=== PATIENT | female | born 1985 | race Caucasian/White ===

== ENCOUNTER 2024-03-20 08:40 | Inpatient (IN) | payer OTHER, SELFPAY ==
[2024-03-20] VITALS (57 sets, daily range): BP systolic 113–215; BP diastolic 76–160; BMI 19.3; BMI 18.5
[2024-03-20 00:55] LABS: % Basophils 0.2 % (0-2); % Eosinophils 0.2 % (0-6); % Immature Granulocytes 0.4 % (0-0.5); % Lymphocytes 6.7 % (20.5-51.1); % Monocytes 2.8 % (1.7-9.3); % Neutrophils 89.7 % (42.2-75.2); Absolute Immature Granulocytes 0.1 10^3/uL (0-0.05); Absolute Lymphocytes 1.3 10^3/uL (1.2-3.4); Absolute Monocytes 0.5 10^3/uL (0.1-0.6); Hematocrit 42.9 % (37.0-47.0); Mean Corp Hgb Conc. 32.6 g/dL (33.0-37.0); Mean Corpuscular Hgb 26.4 pg (27.0-31.0); Mean Corpuscular Volume 80.8 fL (81.0-99.0); Mean Platelet Volume 8.8 fL (7.4-10.4); Nucleated Red Blood Cells % 0 %; Platelet Count 485 10^3/uL (130-400); Red Blood Cell Count 5.31 10^6/uL (4.20-5.40); White Blood Cell Count 18.9 10^3/uL (4.8-10.8)
[2024-03-20] MEDS: NSS 1000 IV (01:42)
[2024-03-20] MEDS: ZOFRAN 4 MG IV ×2 (01:43→07:50)
--- NOTE | 2024-03-20 01:46 | ED.GENMED ---
History of Present Illness
General
Chief Complaint: Withdrawal Symptoms
Source: patient and records (Records from [facility])
Exam Limitations: clinical condition (Patient is moderately lethargic, poorly cooperative, sporadically briefly communicative.) and altered mental status
Time Seen by Provider: 03/20/24 01:31
Nursing documentation reviewed up to this point in time: agreed with
History of Present Illness
History of Present Illness:
This is a 39-year-old woman who was brought to the ED from [facility]. She has history of IV fentanyl and methamphetamine abuse. Reported last use earlier today. Admitted to the local intermediate this evening and was started on
withdrawal protocol receiving 2 L of IV fluids, was given Tylenol with codeine and clonidine as well as a dose of Ativan, IM Benadryl. Patient sent to the ED due to persistent hypertension, recurrent vomiting. She was given lisinopril 20 mg at the
intermediate.
Patient reports being she suspects perhaps 4 months but thus far no care.
Patient is moderately lethargic, sporadically briefly communicative, she does nod yes and no appropriately but otherwise poorly communicative.
Patient notes she has been treated with Suboxone in the past. Denies recent Suboxone treatment. Denies methadone treatment.
Phy Exam
Physical Exam
Physical Exam:
GENERAL: 39-year-old woman appears somewhat older than stated age. Lying on her left side on stretcher. Has recently vomited moderate amount of clear to bilious liquid. She is moderately sedate, nods yes and no appropriately otherwise poorly
cooperative, nonverbal.
EYE: pupils minimally dilated, equal and reactive. anicteric
NECK: Supple, nontender, no meningismus, no significant adenopathy.
ENT: posterior pharynx is clear, oral mucosa is moist. Mild rhinorrhea.
CARDIAC: Regular rate and rhythm. no murmur.
LUNGS: Clear breath sounds bilaterally, no acute respiratory distress, no wheezes/rales/rhonchi
ABDOMEN: Soft, nondistended, mild generalized tenderness to the lower abdomen, I question a palpable fundus just above symphysis pubis, no r/g, no cvat. normoactive BS.
NEUROLOGICAL: Moderately sedate, intermittently briefly communicative, nods yes and no appropriately, moving all extremities independently, no focal neuro deficits.
SKIN: Warm and minimally diaphoretic, normal color, skin intact. No rash.
MUSCULOSKELETAL: No C/C/E. peripheral pulses are full and equal b/l. No palpable tenderness.
PSYCH: Poorly cooperative.
Scores
COW Clinical Opiate Withdrawal Scale
Resting Pulse Rate: 80 or below
Sweating-over past 30min not from room temp or activity: Flushed or observable moistness on face
Restlessness-observation during assessment: Able to sit still
Pupil Size: Pupils possibly larger than normal for room light
Bone or Joint Aches: Mild diffuse discomfort
Runny Nose or Tearing-not accounted for by cold/allergies: Nasal stuffiness or unusually moist eyes
GI Upset-over last 30min: Vomiting or diarrhea
Tremor-observation of outstretched hands: No tremor
Yawning-observation during assessment: No yawning
Anxiety or Irritability: None
Gooseflesh Skin: Skin is smooth
Score: 8
Withdrawal Severity: Mild Withdrawal, consider starting Suboxone
Course
Orders/Labs/Results
Orders:
Orders
03/20/24 00:44
Test Result ONCE
03/20/24 00:46
Complete Blood Count/With Diff Urgent
03/20/24 01:30
Ondansetron Injectable [Zofran] 4 mg .ROUTE .STK-MED ONE
03/20/24 01:32
Comprehensive Metabolic Panel Urgent
HCG, Serum Qualitative Screen Urgent
Urinalysis Reflex To Culture Urgent
Urine Drug Abuse Screen Urgent
0.9% Sodium Chloride 1000 ml [Nss] 1,000 ml IV BOLUS
03/20/24 01:43
Ondansetron Injectable [Zofran] 4 mg IV NOW STA
03/20/24 01:53
Clonidine [Catapres] 0.2 mg PO NOW STA
03/20/24 02:36
KCl 40 Meq/0.9%Sodchl 1000 ml [NSS with KCL 40 MEQ] 40 meq in 1,000 ml IV 250 mls/hr
03/20/24 02:37
Buprenorphine [Subutex] 8 mg SL NOW ONE
03/20/24 03:11
CT Head W/o Iv Contrast Urgent
Comment:
Reason For Exam: lethargy, change in MS
Abnormal Lab Results
03/20/24 03/20/24
00:46 01:32
WBC 18.9 H 10^3/uL
(4.8-10.8)
MCV 80.8 L fL
(81.0-99.0)
MCH 26.4 L pg
(27.0-31.0)
MCHC 32.6 L g/dL
(33.0-37.0)
Plt Count 485 H 10^3/uL
(130-400)
Abs Immat Gran (auto) 0.1 H 10^3/uL
(0-0.05)
Absolute Neuts (auto) 17.0 H 10^3/uL
(1.4-6.5)
Neutrophils % 89.7 H %
(42.2-75.2)
Lymphocytes % 6.7 L %
(20.5-51.1)
Potassium 2.8 L mmol/L
(3.5-5.1)
BUN 5 L mg/dl
(7-17)
Glucose 129 H mg/dl
(70-99)
03/20/24 00:46
03/20/24 01:32
Vital Signs
Initial and Last Documented VS:
Initial Vital Signs
Temp Pulse Resp BP Pulse Ox
98.3 F 104 18 180/140 97
12/23/24 00:01 03/20/24 00:01 03/20/24 00:01 03/20/24 00:01 03/20/24 00:01
Last Documented Vital Signs
Temp Pulse Resp BP Pulse Ox
97.7 F 99 32 215/123 97
03/20/24 02:15 03/20/24 01:00 03/20/24 01:00 03/20/24 00:28 03/20/24 00:01
MDM/Problems Addressed
Differential Diagnosis Includes:
Concern for significant opiate as well as methamphetamine withdrawal.
COWS score currently of 8
Labs thus far show significantly elevated white blood cell count of 18. Chemistries, hCG are pending.
As patient is moderately sedate, will check CT of the head. If hCG is positive we will check pelvic ultrasound.
Will continue IV fluids. Will give IV dose of Zofran for nausea.
Will consider Subutex, clonidine, Ativan
*Radiology
Radiology exam reviewed: radiology read reviewed (CT of the head is unremarkable)
*Pulse Oximetry
Patient hypoxic: no
*Psychology Intern Interpretation
Rate: tachycardiac
Interpretation: abnormal
Rhythm: sinus
*Critical Care Note
Total Time (30-74mins, 75-104mins- exclusive of procedures): Not Applicable
Update Note
Update Note:
04:20
Patient remains moderately sedate, appears to have mild to moderate opioid withdrawal, remains mildly tachycardic, moderately hypertensive.
She remains poorly cooperative however, initially agreeable to Subutex but now will not cooperate with oral administration.
CT of the head is unremarkable.
Chemistries reveal moderate hypokalemia. IV potassium repletion has been initiated. hCG is negative.
She continues with intermittent dry heaves but no further vomiting.
Due to ongoing GI symptoms, ongoing withdrawal symptoms, lethargy, unstable vital signs, she is at risk for worsening/severe withdrawal symptoms thus will require acute hospitalization.
ED Attending Note
-
Portions of this chart may have been created with voice recognition software.� Occasional wrong word or��sound alike� substitutions may have occurred due to the inherent limitations of voice recognition software.
Discharge Plan
Departure
Patient Disposition: Admit
Date of Disposition: 03/20/24
Time of Disposition: 04:24
Admit to doctor: genaro
Presentation/result/management discussed w/ accepting MD/DO: Hospitalist
Discharge Problem:
Polysubstance dependence including opioid drug with daily use, Opioid withdrawal delirium, Acute hypokalemia
Referrals:
[facility] [Family Provider] -
Interventions
Interventions:
*Risk Screen - Suicide Last Done: 03/20/24 00:01
*General Assessment Last Done: 03/20/24 00:01
*Neglect/Abuse Screening Last Done: 03/20/24 00:01
*ED COVID-19 Vaccine History Last Done: 03/20/24 00:13
ED- Neurological Assessment Last Done: 03/20/24 01:19
ED-Psychological Assessment Last Done: 03/20/24 01:19
Discharge Date and Time
Print Language: GERMAN
[2024-03-20 02:10] LABS: HCG, Serum Qualitative Screen Negative
[2024-03-20 02:11] LABS: ALT (SGPT) 23 U/L (0-35); AST (SGOT) 35 U/L (14-36); Albumin 4.4 g/dl (3.5-5.0); Alkaline Phosphatase 107 U/L (38-126); Blood Urea Nitrogen 5 mg/dl (7-17); Calcium 9.2 mg/dl (8.4-10.2); Carbon Dioxide 26 mmol/L (22-30); Chloride 100 mmol/L (98-107); Estimated Creatinine Clearance 106 ml/min; Glucose 129 mg/dl (70-99); Potassium 2.8 mmol/L (3.5-5.1); Sodium 143 mmol/L (135-145); Total Bilirubin 0.7 mg/dl (0.2-1.3); Total Protein 8.1 g/dl (6.3-8.2); eGFR > 60.00
[2024-03-20] MEDS: NSS with KCL 40 MEQ 1000 IV (02:59)
[2024-03-20] MEDS: CATAPRES 0.2 MG PO ×2 (03:03→05:36)
--- NOTE | 2024-03-20 04:34 | PTCARENOTE ---
Pt refused to take medications. Pt uncooperative. Does not answer questions when spoken to. HR: 120s. Sinus Tachy on monitor.
[2024-03-20 04:59] LABS: Urine Albumin Negative (Neg - Trace); Urine Bilirubin Negative (Negative); Urine Character Clear (Clear); Urine Color Yellow; Urine Glucose Negative (Negative); Urine Ketone 3+ (Negative); Urine Leukocyte Trace (Negative); Urine Nitrite Negative (Negative); Urine Occult Blood Negative (Negative); Urine Urobilinogen Negative (Neg - 1+)
--- NOTE | 2024-03-20 05:06 | PTCARENOTE ---
Pt incontinent several times. Does not answer this Rn when asked if she knows when she has to void. Straight cath performed to obtain urine sample. Pt uncooperative. Guards at the bedside. HR:110-120s. POX 98% on RA. IVF infusing.
--- NOTE | 2024-03-20 05:30 | HPS.HSE ---
Family Physician
-
Family Physician: Facility [facility]
Chief Complaint
-
Withdrawal symptoms
History of Present Illness
History obtained per chart as patient was noncooperative and is a poor historian. This is a 39-year-old who was brought in from [facility] with history of IV opioid and methamphetamine abuse.
She was admitted to the local half-way this evening and started on withdrawal protocol with IV fluids and Tylenol with codeine as well as clonidine Ativan and Benadryl. Patient continued to have persistent hypertension and tachycardia and recurrent
vomiting so was brought to the emergency department. She was given lisinopril 20 mg in half-way. Reports history of Suboxone treatment in the past but not recently. Denies being on methadone.
Patient reports she suspect she is without any care.
Medical History
Past Medical History
Past Medical History: Reports Psychiatric (Substance abuse)
Past Surgical History: Reports None
Social History
Alcohol: None
Drug: Narcotics and IVDA
Family History
Family History: Not pertinent
Allergies / Home Medications
Allergies reflects when Allergies were last updated in [employer].
Home Medications with original date entered in [employer]
Allergy/Medication List:
Allergies
Allergy/AdvReac Type Severity Reaction Status Date / Time
No Known Allergies Allergy Verified 03/20/24 00:10
NO MEDICATIONS
Review of Systems
-
Unable to obtain full review of systems at this time due to: Acuity
Physical Exam
Vital Signs
Vital Signs
Temp Pulse Resp BP Pulse Ox
98.8 F 108 30 206/115 97
03/20/24 04:57 03/20/24 04:30 03/20/24 04:30 03/20/24 04:00 03/20/24 00:01
Physical Exam
General: No Apparent Distress
HEENT: NormoCephalic, Anicteric, Moist mucous membranes and Atraumatic
Respiratory: Clear
Cardiac: S1/S2, Regular Rhythm and Tachycardia
Breast: Deferred by me
GI: Soft, Non Tender, Non Distended and Normal Bowel Sounds
Rectal: Deferred by Provider
Genito-urinary: Deferred by me
Musculoskeletal: No Cyanosis and No Edema
Neuro: Awake
Hematologic/Lymphatic: No Lymphadenopathy
Psych: Calm
Laboratory Results
-
03/20/24 00:46
03/20/24 01:32
Laboratory Results
Total Bilirubin 0.7 mg/dl (0.2-1.3) 03/20/24 01:32
AST 35 U/L (14-36) 03/20/24 01:32
ALT 23 U/L (0-35) 03/20/24 01:32
Alkaline Phosphatase 107 U/L (38-126) 03/20/24 01:32
Data Reviewed
-
CT Scan: Report Reviewed by me
Lab Data: Labs Reviewed by me
Impression/Plan
-
IMPRESSION:
38 y.o with h/o fentanyl use presenting with opioid withdrawal and failure of management at outside facillity. Last use on wednesday.
PLAN:
Opioid withdrawal
- admit to imu
- COWS protocol with subuxone
- lorazepam prn
- clonidine 0.1 mg q 6
- adjunctive treatments with acetaminophen, antiemetics and loperamide per protocol
- patient uncooperative, no warm hand, consult psych in am
DVT PPX - SCDs
Code status - full code
[2024-03-20] MEDS: SUBUTEX 8 MG SL ×3 (05:33→12:16)
--- NOTE | 2024-03-20 05:44 | PTCARENOTE ---
Pt continues to be uncooperative. nonverbal. SBP 200, aware. Subutex and catapres given.
[2024-03-20 05:54] LABS: Amphetamines Positive (Negative); Barbiturates Negative (Negative); Benzodiazepines Positive (Negative); Buprenorphine Negative (Negative); Cocaine Positive (Negative); Marijuana Negative (Negative); Methadone Negative (Negative); Methamphetamines Positive (Negative); Opiates Positive (Negative); Phencyclidine Negative (Negative); Tricyclic Antidepressants Negative (Negative)
[2024-03-20 06:14] LABS: Fentanyl, Urine Positive (Negative)
[2024-03-20 06:53] LABS: Urine Squamous Cell >30 /LPF (Few); Urine Urothelial Cell 16-20 /LPF (FEW)
[2024-03-20 06:54] LABS: Urine Bacteria Moderate (Negative); Urine Red Blood Cell 0-2 /HPF (0-2)
[2024-03-20 06:55] LABS: Urine Mucus Few
--- NOTE | 2024-03-20 07:38 | W.PN.HOSP.TC ---
Today's Communication/Plan
-
Nicardipine drip
ICU transfer
Neurology consult
Senior Benefits Analyst consult
Assessment / Plan
Assessment / Plan
Gen-somnolent
HEENT-NC, AT, anicteric, clear oral mm
Neck-supple
CV-reg, no M, +S1/S2
Lungs-clear B/L
Abd-soft, NT, ND
Ext-no edema
Musculoskeletal-no cyanosis, clubbing
Skin-warm and dry
Acute TME -differential diagnosis includes seizures versus hypertensive encephalopathy versus other. CT head unremarkable in the emergency room. Patient remains unarousable.
Consult neurology, rule out underlying seizures.
Transfer to ICU. Senior Benefits Analyst consult.
Opioid withdrawal syndrome -continue protocol.
Hypertensive emergency -start nicardipine drip. Continue clonidine per opiate withdrawal protocol.
Hypokalemia -potassium 2.8 this morning. Recheck level now, check magnesium.
Substance abuse -consult psychiatry once stable.
Full code - assumed.
Anticipated Discharge: > 48 hours
Subjective/Interval History
-
Date of Service: March 20, 2024
Patient seen/examined. Sedated, hard to arouse, not following commands.
Objective Data
-
Labs:
Laboratory Results
03/20/24 03/20/24 03/20/24
00:46 01:32 11:00
WBC 18.9 H
Hgb 14.0
Hct 42.9
Plt Count 485 H
Sodium Cancelled 143 Pending
Potassium Cancelled 2.8 L Pending
Chloride Cancelled 100 Pending
Carbon Dioxide Cancelled 26 Pending
BUN Cancelled 5 L Pending
Creatinine Cancelled 0.6 Pending
Glucose Cancelled 129 H Pending
Calcium Cancelled 9.2 Pending
Total Bilirubin Cancelled 0.7
AST Cancelled 35
ALT Cancelled 23
Alkaline Phosphatase Cancelled 107
Vital Signs:
Vital Signs
Temp Pulse Resp BP Pulse Ox
98 F 124 24 186/124 99
03/20/24 06:34 03/20/24 06:30 03/20/24 06:30 03/20/24 06:30 03/20/24 06:44
Review of Systems
-
Unable to obtain full review of systems at this time due to: Acuity
--- NOTE | 2024-03-20 07:41 | CON.INTV ---
Consultation
Consultation Request
Date/Time Consultation Requested: 03/20/2024-7 AM
Date/Time Consultation Performed: 03/20/2024-7:30 AM
Requesting Provider: Hospitalist
Performing Provider: Dr. Mendoza
Reason for Consultation: Opiate withdrawal
Medical History
-
Chief Complaint: Opiate withdrawal
History of Present Illness:
39-year-old incarcerated female with history of IV opiates and methamphetamine abuse recently admitted to local residential and started on withdrawal protocol with IV fluids, Tylenol with codeine, Ativan, Benadryl and clonidine and continued to have
significant tachycardia, agitation, and hypertension necessitating admission and transfer to intensive care unit-asian art curator consulted for opiate withdrawal/critical care management 03/20/2024. Patient is sedated, lethargic, intermittently agitated
and review of systems was unobtainable.
Past Medical History
Past Medical History: None (Substance abuse-IV opiates and methamphetamines)
Social History
Tobacco: Non-smoker
Alcohol: None
Drug: IVDA (Narcotics) and Other (Methamphetamines)
Personal: Single
Living: [facility]
Occupational Exposures: No known asbestos exposure
Environmental Exposures: No known tuberculosis exposure
Family History
Family History: Unable to Obtain
Allergies / Home Medications
Allergies
Allergy/AdvReac Type Severity Reaction Status Date / Time
No Known Allergies Allergy Verified 03/20/24 00:10
Review of Systems
-
Unable to Obtain full review of systems at this time due to: Other (Per HPI)
Vitals / Labs / Diagnostic Testing
Vital Signs
Temp Pulse Resp BP Pulse Ox
98 F 124 24 186/124 99
03/20/24 06:34 03/20/24 06:30 03/20/24 06:30 03/20/24 06:30 03/20/24 06:44
Lab Data
03/20/24 00:46
Diagnostic Testing:
Physical Exam
-
Exam:
Well-nourished and well-developed in no apparent distress
HEENT-atraumatic, normocephalic
Neck-supple, no JVD, no bruit
Heart-regular rate tachycardic, no murmurs
Chest clear without wheezes or crackles
Back-no tenderness
Abdomen-soft, nontender, nondistended, no hepatosplenomegaly
Extremities-no cyanosis, clubbing, edema and good peripheral pulses
Integument-intact, no rashes, lesions or ecchymosis
Neurologically agitated, moving extremities
Assessment
-
39-year-old incarcerated female with history of IV opiates and methamphetamine abuse recently admitted to local residential and started on withdrawal protocol with IV fluids, Tylenol with codeine, Ativan, Benadryl and clonidine and continued to have
significant tachycardia, agitation, and hypertension necessitating admission and transfer to intensive care unit-asian art curator consulted for opiate withdrawal/critical care management 03/20/2024.
Opiate withdrawal
UDS-positive opiates, fentanyl, amphetamines, methamphetamines, benzodiazepines and cocaine
Hypertensive urgency
Hypokalemia
Suspected seizure activity-1 hour EEG without seizure activity
Leukocytosis
Hyperglycemia
Conditions present prior to admission:
Polysubstance abuse
Plan
Patient will be admitted to medical intensive care
Supplemental oxygen
Intubate and mechanically ventilate if need to protect airway
Aspiration precautions
Check ABG if needed
Etiology of drug overdose likely multiple including benzodiazepines, opiates, amphetamines, and cocaine
Monitor for arrhythmias-monitor QTC, QRS, etc.
CT head summarized below
Neurology evaluation ongoing-correspondence reviewed
EEG-negative for seizure activity
For potential opiate overdose
Monitor for respiratory depression, contricted pupils,
Dextromethorphan - serotonin txicity
Fentanyl - amnestic, chest wall rigidity
Hydrocodone - often combined with acetaminophen
Loperamide - QRS and QT prolongation, wide complex tachy
Meperidine - seizure, serotonin toxicity
Methadone - very long acting, QT prolongation, Torsades
Oxycodone - often combined with acetaminophen, QT prolongation
Tramadol - seizure, serotonin toxicity
Naloxone- consider drip
Often Xylazine coadministered with Fentanyl
causes coma, apnea, bradycardia and hypotention, skin ulcerations
withdrawal irratibility, craving, anxiety, dysphoria, tachy, aches, htn
check levels
More recent laced with Medetomidine -Symptoms include intractable vomiting, excessive diaphoresis, hypertensive emergency, waxing and waning hypoactive encephalopathy, tremors and tachycardia- treated with methadone/hydromorphone and
alpha-2 agonist withdrawal with clonidine
For potential benzodiazepine overdose
Monitor for sedation, airway protection, intubate if necessary, supportive care
Consider propylene glycol toxicity if parenteral diazepam or lorazepam was used
Flumazenil could be considered
Intravenous fluids
Nicardipine for hypertensive emergency
Labetalol as needed
Clonidine added
Psychiatric evaluation
DVT prophylaxis-Lovenox
Aspiration precautions
Early nutrition
Early mobilization
Critical care statement: A total of 55 minutes of critical care time was provided for this patient today. This includes management of unstable vital signs, evaluation of the patient at bedside, reviewing the patient's pertinent medical records
including radiographs, microbiology, laboratory evaluations, and discussion with primary team and critical care nursing.
Diagnostic data:
Chest x-ray 03/20/2024-no acute cardiopulmonary process, NG tube tip in stomach
CT head 03/20/2024-no acute intracranial abnormalities
Data Reviewed
-
EKG: Report reviewed by me
Radiology: Report reviewed by me
CT Scan: Report reviewed by me
Medical Tests (Nuc Med, Echo etc): Report reviewed by me
Labs: Labs reviewed by me
Old Records: Reviewed
Critical Care Time (in minutes): 55
[2024-03-20] MEDS: D5/0.45%NACL 1000 IV ×2 (07:51→19:27)
--- NOTE | 2024-03-20 07:56 | PTCARENOTE ---
pt received in sinus tach HR 126. BP 187/144 RUE. pt unresponsive. Twitching noted to b/l eye lids and, cheek and b/l hands tremulous. Hospitalist bedside concerned for possible seizure activity, consult neuro. N/O Cardene start at 5mg titrate for
SBP. see may. Neurology at bedside, N/O EEG. VAT RN at bedside attempt to obtain additional access. IVF continues. Pt vomited greenish yellow, zofran administered. B/L hands appear mottled. +radial Pulses b/l. Bladder scan showed no urine in the
bladder. Pt did briefly respond, moaning c/o pain, able to answer 'everything' when asked what is hurting but continues to keep eyes closed.
--- NOTE | 2024-03-20 08:00 | CON.NEURO ---
Neuro Assessment/Plan
Assessment
Acute change of mental status
Most likely toxic-metabolic, DDX includes somatization D/O, seizures due to cocaine exposure
Plan
check urgent > 1 hour EEG
consider new head imaging if no improvement
Continue therapies for control of withdrawal from cocaine, amphetamines, fentanyl
Based on EEG results, can decide if antiseizure medication is necessary
Goal of gradual normotension
Will follow pending results.
Consultation
Order
Date of Consultation: 03/20/24
Requesting Provider: Hospitalist
Reason for Consult: Unresponsiveness
Subjective/Objective
Subjective Data
Date of Service: March 20, 2024
Unknown handed
Patient presented to this hospital's emergency department, withdrawing from known exposure to methamphetamine, and IV fentanyl. The patient was subsequently also found to have used cocaine. At the time of presentation, the patient was described as
being as well as moderately lethargic.
Due to persistent lethargy, this consultation was placed. The patient herself is unable to provide her own medical history. It is unclear as to when the patient became lethargic.
No known modifying factors, no known associated symptoms with the exception of the patient having developed emesis this morning while in the intensive care unit.
Objective Data
Vital Signs
Temp Pulse Resp BP Pulse Ox
36.6 C 124 24 186/124 99
03/20/24 06:34 03/20/24 06:30 03/20/24 06:30 03/20/24 06:30 03/20/24 06:44
Lab Results
03/20/24 00:46
Sodium 143 mmol/L (135-145) 03/20/24 01:32
Potassium 2.8 mmol/L (3.5-5.1) L 03/20/24 01:32
BUN 5 mg/dl (7-17) L 03/20/24 01:32
Glucose 129 mg/dl (70-99) H 03/20/24 01:32
Calcium 9.2 mg/dl (8.4-10.2) 03/20/24 01:32
Ur Buprenorphine Negative (Negative) 03/20/24 04:53
Patient Allergies
No Known Allergies Allergy (Verified 03/20/24 00:10)
Review of Systems
-
Unable to obtain full review of systems at this time due to: Lethargy
History Source: Patient
All other systems: Reviewed and negative
Physical Exam
-
General: No Apparent Distress and Appears Stated Age
Eyes: Round OU, [place] Conjunctivae and No Ptosis; Negative Able to visualize OU
HEENT: Anicteric and Moist Mucous Membranes
Neck: Full Range of Motion
Respiratory: No Dyspnea
Cardiac: No JVD
GI: Non-distended
Skin: Other (Numerous tattoos)
Extremities: No Clubbing, No Cyanosis and No Edema
Psych: Unable to Assess
Extended Neurological Exam
Mood & Affect: Unable to Assess
Attention Span & Concentration: Awake, Unable to Perform 2 Step Request and Other (Does perform some single step requests); Negative Alert or Interactive
Memory: Unable to Assess
Tremor: Hand Tremor Absent and Head Tremor Absent
Involuntary Movement: None
Speech: Mute
Cranial Nerve II: Left Eye: Pupillary Reactivity Unremarkable, Pupillary Size Unremarkable and Unable to Assess Visual Swenson
Cranial Nerve II: Right Eye: Pupillary Reactivity Unremarkable, Pupillary Size Unremarkable and Unable to Assess Visual Swenson
Cranial Nerves III, IV, : Extraocular Movement: Unable to Assess
Cranial Nerve V: Facial Sensation: Unable to Assess
Cranial Nerve VII: Facial Symmetry: Normal Facial Symmetry
Cranial Nerve VIII: Hearing: Unremarkable Hearing to Normal Conversational Volume
Cranial Nerves IX, X: Palate Movement: Unable to Assess
Cranial Nerve XI: Shoulder Shrug: Unable to Assess
Cranial Nerve XII: Tongue Protusion: Unable to Assess
Muscle Strength, Overall: Spontaneously Moves (All extremities, minimally, distally, rarely)
Muscle Bulk & Tone: Bulk Unremarkable and Tone Unremarkable
Pronator Drift: Unable to Assess
Deep Tendon Reflexes: Absent Throughout
Cold Sensation: Unable to Assess
Vibration Sensation: Unable to Assess
Touch Sensation: Withdrawal to Pain
Coordination: Unable to Assess
Babinski Sign: Absent Bilaterally
Gait & Station: Unable to Assess
Data Reviewed
-
CT Head: Report Reviewed
Medications
-
Active Medications
Generic Name Dose Route Start Last Admin
Trade Name Freq PRN Reason Stop Dose Admin
Acetaminophen 1,000 mg 03/20/24 08:00
Acetaminophen 500 Mg Tablet PO 04/17/24 07:59
Q8 DEONDRE
Buprenorphine 8 mg 03/20/24 06:26
Buprenorphine 8 Mg Sl Tablet SL
PRN PRN
COWS greater than/equal to 8
Protocol
Buprenorphine 0 mg 03/21/24 08:00
Buprenorphine 8 Mg Sl Tablet SL 03/21/24 08:01
ONCE ONE
Buprenorphine 0 mg 03/22/24 08:00
Buprenorphine 8 Mg Sl Tablet SL 04/05/24 07:59
DAILY DEONDRE
Buprenorphine 4 mg 03/21/24 08:00
Buprenorphine 2 Mg Sl Tablet SL 03/22/24 08:00
ONCE PRN PRN
opioid cravings/withdrawal sx
Clonidine HCl 0.1 mg 03/20/24 06:26 03/20/24 07:52
Clonidine 0.1 Mg Tablet PO 04/17/24 06:25 Not Given
Q6 DEONDRE
Dextrose/Sodium Chloride 1,000 mls @ 75 mls/hr 03/20/24 06:26 03/20/24 07:51
D5/0.45%Nacl IV 1,000 mls
.[id number] DEONDRE Administration
Nicardipine/Sodium Chloride 40 mg in 200 mls @ 0 mls/hr 03/20/24 07:45
Cardene IV
PER PROTOCOL DEONDRE
Protocol
Per Protocol
Ketorolac Tromethamine 10 mg 03/20/24 06:26
Ketorolac 15 Mg/Ml Injection IV 03/25/24 06:25
Q6HPRN PRN
moderate pain
Loperamide HCl 2 mg 03/20/24 06:26
Loperamide 2 Mg Capsule PO 04/17/24 06:25
Q4HPRN PRN
loose stools
Lorazepam 1 mg 03/20/24 06:26
Lorazepam 2 Mg/Ml Vial IV 04/17/24 06:25
Q6HPRN PRN
agitation
Ondansetron HCl 4 mg 03/20/24 06:26 03/20/24 07:50
Ondansetron 4 Mg/2 Ml Vial IV 04/17/24 06:25 4 mg
Q6HPRN PRN Administration
nausea
Sodium Chloride 0 flush 03/20/24 05:00
Sodium Chloride 0.9% (Flush) Syringe IV 04/17/24 04:59
PER PROTOCOL DEONDRE
Sodium Chloride 0.5 ml 03/20/24 06:45
Nss (Pf) 10 Ml Vial For Ativan 1 Mg Dose IV 04/17/24 06:44
Q6HPRN PRN
IV LORAZEPAM DILUTION
Tizanidine HCl 2 mg 03/20/24 06:26
Tizanidine 2 Mg Tablet PO 04/17/24 06:25
Q6HPRN PRN
restlessness,agitation,anxiety
Past History
Social History
Drug: Cocaine and Narcotics
[2024-03-20] MEDS: CARDENE 200 IV (08:21)
[2024-03-20 09:12] LABS: INR 1.05
[2024-03-20 09:13] LABS: APTT 30.6 Sec (23.4-35.0)
[2024-03-20 09:32] LABS: ALT (SGPT) 20 U/L (0-35); AST (SGOT) 31 U/L (14-36); Albumin 3.8 g/dl (3.5-5.0); Alkaline Phosphatase 102 U/L (38-126); Blood Urea Nitrogen 6 mg/dl (7-17); Carbon Dioxide 23 mmol/L (22-30); Chloride 106 mmol/L (98-107); Estimated Creatinine Clearance 76 ml/min; Glucose 168 mg/dl (70-99); Magnesium 1.4 mg/dl (1.6-2.3); Sodium 142 mmol/L (135-145); Total Bilirubin 0.6 mg/dl (0.2-1.3); Total Protein 7.3 g/dl (6.3-8.2); eGFR > 60.00
[2024-03-20] MEDS: MAGNESIUM SULFATE 100 IV (10:27)
[2024-03-20] MEDS: KCL 270 MEQ IV ×2 (10:28→18:31)
--- NOTE | 2024-03-20 10:52 | EEG.RPT ---
Electroencephalogram Report
Recording
Date of EE03/20/24
Type of EEG: Routine
Length of EEG recordin minutes
Done with Video Recording: Yes
Patient Status: Inpatient
Recording Conditions: Awake and Drowsy
Hyperventilation Performed: No
Photic Stimulation Performed: Yes
Report
GREATER THAN 1 HOUR EEG INTERPRETATION:
Unremarkable EEG for age
CLINICAL CORRELATION:
A normal EEG does not rule out a diagnosis of epilepsy. If clinical suspicion for seizure persists, a prolonged recording may be warranted.
Clinical correlation is advised.
METHODS:
A 21 channel digitized electroencephalogram (EEG) was performed using the 10/20 international system of electrode placement and one-lead of ECG recorded. The [facility] quantitative EEG system was utilized.
ELECTROENCEPHALOGRAPHER IMPRESSION(S):
Quality of study
Fair�good, limited mildly by muscle artifact
Background
There was an unremarkable anterior-posterior voltage gradient of alpha frequency.
With eye opening the background activity changed to a low voltage mixture of frequencies.
There were no significant asymmetries of background activity noted.
Sleep
Drowsiness present
Photic Stimulation
No activation
ECG
Normal sinus rhythm
[2024-03-20 10:54] LABS: Phosphorus 2.5 mg/dl (2.5-4.5)
[2024-03-20] MEDS: CATAPRES-TTS-1 0.1 MG TRANSDERM (11:00)
[2024-03-20] MEDS: TRANDATE 10 MG IV ×3 (11:01→19:30)
--- NOTE | 2024-03-20 11:11 | PTCARENOTE ---
NG tube inserted, CXR to confirm placement. restraints d/t pulling at tube. pt vomited throughout insertion of tube. PRN dose of labetalol administered.Slug Press Operator updated.
--- NOTE | 2024-03-20 12:23 | PTCARENOTE ---
pt remains difficult to arouse. LCTA on RA 95% NG draining dark brown 150ml. Correctional officers voiced concern that pt's face and neck appear more swollen than before pt was brought in. Performance Makeup Artist and attending notified. HOB elevated >30
degrees. Tongue does not appear to be swollen. Suboxone administered per protocol, See MAR. Other than interventions provided, no gross change in assessment. COs remain at bedside.
[2024-03-20] MEDS: CATAPRES 0.1 MG TUBE ×3 (14:59→23:11)
--- NOTE | 2024-03-20 16:13 | CM ---
CM following re: discharge planning.
Discussed in Rounds, reviewed pt's chart, met with pt. Two guards at bedside.
Pt is a 39 year old admitted from [facility] with primary dx of Opioid withdrawal.
Per guardaye, pt supposed to have Court hearing today but pt cannot participate in hearing due to mental state. Per chloe, this is a possibility that [facility] will release the pt.
D/C plan: unknown at this time and will de[end on pt's progresses
CM will follow with discharge plan updates as hospitalization progresses
--- NOTE | 2024-03-20 16:39 | PTCARENOTE ---
patient assessments per work list. cardene resumed per work list. able to wean off post prn medication administration. lungs with coarse breath sounds. no cough. ngt placement verified, draining green fluid. previously incontinent, purewick in
place. hyperactive bowel sounds, no stools. COWs per work list. wrist restraints maintained
[2024-03-20] MEDS: LOVENOX 40 MG SC (17:15)
[2024-03-20] MEDS: TYLENOL ORAL SOLUTION 650 MG TUBE ×2 (17:15→23:11)
[2024-03-20 18:08] LABS: Blood Urea Nitrogen 8 mg/dl (7-17); Calcium 8.8 mg/dl (8.4-10.2); Carbon Dioxide 27 mmol/L (22-30); Chloride 105 mmol/L (98-107); Estimated Creatinine Clearance 67 ml/min; Glucose 140 mg/dl (70-99); Magnesium 3.1 mg/dl (1.6-2.3); Potassium 3.1 mmol/L (3.5-5.1); Sodium 141 mmol/L (135-145); eGFR > 60.00
--- NOTE | 2024-03-20 19:51 | PTCARENOTE ---
Patient difficult to arouse, moves lower extremities and groans. Does not follow commands, COWS score 5. B/l wrist restraints ongoing. Palpable radial and pedal pulses b/l, hypertensive, labetalol prn given. Sinus tach, 100s-120s. Lung sounds
diminished throughout, coarse anteriorly. Right nare NG tube to LIWS at 65. Green drainage, hyperactive bowel sounds. Purewick in place. Bruise on right knee, scarring throughout extremities and on neck. PIVs patent, WNL. D5 half NSS ongoing per
order. Hourly rounding and patient safety checks ongoing. Repositioned, mouth care done.
[2024-03-21] VITALS (43 sets, daily range): BP systolic 115–197; BP diastolic 80–137; BMI 19.0
--- NOTE | 2024-03-21 00:40 | PTCARENOTE ---
Cardene restarted per protocol, otherwise patient assessment unchanged from previous.
--- NOTE | 2024-03-21 04:58 | PTCARENOTE ---
CHG bath done, repositioned, labs sent. Otherwise patient assessment unchanged from previous.
[2024-03-21] MEDS: CATAPRES 0.1 MG TUBE ×2 (05:11→11:01)
[2024-03-21] MEDS: TYLENOL ORAL SOLUTION 650 MG TUBE ×4 (05:11→23:31)
[2024-03-21 05:15] LABS: % Basophils 0.2 % (0-2); % Immature Granulocytes 0.8 % (0-0.5); % Lymphocytes 11.9 % (20.5-51.1); % Monocytes 5.6 % (1.7-9.3); % Neutrophils 81.5 % (42.2-75.2); Absolute Immature Granulocytes 0.2 10^3/uL (0-0.05); Absolute Lymphocytes 2.7 10^3/uL (1.2-3.4); Absolute Monocytes 1.3 10^3/uL (0.1-0.6); Absolute Neutrophils 18.7 10^3/uL (1.4-6.5); Hematocrit 37.1 % (37.0-47.0); Hemoglobin 12.2 g/dL (12.0-16.0); Mean Corp Hgb Conc. 32.9 g/dL (33.0-37.0); Mean Corpuscular Hgb 26.7 pg (27.0-31.0); Mean Corpuscular Volume 81.2 fL (81.0-99.0); Mean Platelet Volume 8.9 fL (7.4-10.4); Nucleated Red Blood Cells % 0 %; Platelet Count 360 10^3/uL (130-400); Red Blood Cell Count 4.57 10^6/uL (4.20-5.40)
[2024-03-21 05:26] LABS: Blood Urea Nitrogen 11 mg/dl (7-17); Calcium 8.7 mg/dl (8.4-10.2); Carbon Dioxide 25 mmol/L (22-30); Chloride 109 mmol/L (98-107); Estimated Creatinine Clearance 78 ml/min; Glucose 120 mg/dl (70-99); Magnesium 2.5 mg/dl (1.6-2.3); Potassium 3.7 mmol/L (3.5-5.1); Sodium 142 mmol/L (135-145); eGFR > 60.00
--- NOTE | 2024-03-21 07:43 | W.PN.INTV ---
Today's Communication / Plan
Recommendations
Nicardipine drip-attempt to wean
Adjust antihypertensives
Continue Subutex, and lorazepam as needed
Clonidine added
Assessment
-
39-year-old incarcerated female with history of IV opiates and methamphetamine abuse recently admitted [facility] and started on withdrawal protocol with IV fluids, Tylenol with codeine, Ativan, Benadryl and clonidine and continued to have
significant tachycardia, agitation, and hypertension necessitating admission and transfer to intensive care unit-software configuration engineer consulted for opiate withdrawal/critical care management 03/20/2024.
Opiate withdrawal
UDS-positive opiates, fentanyl, amphetamines, methamphetamines, benzodiazepines and cocaine
Hypertensive urgency
Hypokalemia
Suspected seizure activity-1 hour EEG without seizure activity
Leukocytosis
Hyperglycemia
Conditions present prior to admission:
Polysubstance abuse
Plan
Remains critically ill
Supplemental oxygen as needed
Aspiration precautions
Hold off on intubation
Follow ABG
Etiology of drug overdose likely multiple including benzodiazepines, opiates, amphetamines, and cocaine
Monitor for arrhythmias-monitor QTC, QRS, etc.
CT head summarized below
Neurology evaluation ongoing-correspondence reviewed
EEG-negative for seizure activity
For potential opiate overdose
Monitor for respiratory depression, contricted pupils,
Dextromethorphan - serotonin txicity
Fentanyl - amnestic, chest wall rigidity
Hydrocodone - often combined with acetaminophen
Loperamide - QRS and QT prolongation, wide complex tachy
Meperidine - seizure, serotonin toxicity
Methadone - very long acting, QT prolongation, Torsades
Oxycodone - often combined with acetaminophen, QT prolongation
Tramadol - seizure, serotonin toxicity
Naloxone- consider drip
Often Xylazine coadministered with Fentanyl
causes coma, apnea, bradycardia and hypotention, skin ulcerations
withdrawal irratibility, craving, anxiety, dysphoria, tachy, aches, htn
check levels
More recent laced with Medetomidine -Symptoms of withdrawal include intractable vomiting, excessive diaphoresis, hypertensive emergency, waxing and waning hypoactive encephalopathy, tremors and tachycardia- treated with
methadone/hydromorphone and alpha-2 agonist withdrawal with clonidine
For potential benzodiazepine overdose
Monitor for sedation, airway protection, intubate if necessary, supportive care
Consider propylene glycol toxicity if parenteral diazepam or lorazepam was used
Flumazenil could be considered
Intravenous fluids
Nicardipine for hypertensive emergency-attempt to wean
Labetalol as needed
Clonidine continues
Hydralazine or Vasotec IV as needed
Psychiatric evaluation once stabilized
DVT prophylaxis-Lovenox
Aspiration precautions
Early nutrition
Early mobilization
Critical care statement: A total of 45 minutes of critical care time was provided for this patient today. This includes management of unstable vital signs, evaluation of the patient at bedside, reviewing the patient's pertinent medical records
including radiographs, microbiology, laboratory evaluations, and discussion with primary team and critical care nursing.
Diagnostic data:
Chest x-ray 03/20/2024-no acute cardiopulmonary process, NG tube tip in stomach
CT head 03/20/2024-no acute intracranial abnormalities
Subjective Dataa
Subjective Data
Date of Service:
Date of Service: March 21, 2024
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
Subjective:
Still quite lethargic, responds to noxious stimuli, no seizure activity, arousable but noncommunicative
Review of Systems
General: Other (Per HPI)
Objective Data
Data Reviewed
Vital Signs / I&O / Oxygen:
Vital Signs
Temp Pulse Resp BP Pulse Ox
97.6 F 113 33 163/115 99
03/21/24 03:23 03/21/24 06:00 03/21/24 06:00 03/21/24 06:00 03/21/24 06:00
Intake and Output
1203/21/24 03/22/24
06:59 06:59 06:59
Intake Total 2882.5 / 2882.5
Output Total 1550 / 1550
Balance 1332.5 / 1332.5
SaO2 99
Physical Exam
General: Respiratory Distress (n) and Comfortable
HEENT: Normocephalic, Anicteric and Moist Mucous Membranes
Cardiovascular: Regular Rhythm
Respiratory: Wheeze (n), Crackles (n), Rhonchi (n), Non-Labored Respirations, Accessory Resp Muscle Use (n) and Stridor
GI: Soft, Non Distended and Non Tender
Neurology: Awake and No Motor Deficits
Skin: Warm, Good Color, Cyanosis (n), Jaundice (n) and Rash
Labs/Micro/Reports
Lab Data
03/21/24 04:37
03/21/24 04:37
Laboratory Results
03/20/24
08:29
PT 14.0
INR 1.05
APTT 30.6
[2024-03-21] MEDS: TRANDATE 10 MG IV ×4 (08:21→23:42)
[2024-03-21] MEDS: D5/0.45%NACL 1000 IV ×2 (08:53→22:23)
--- NOTE | 2024-03-21 09:16 | PTCARENOTE ---
report received, assessments per work list. patient hypertensive required initiation of cardene. prn dose labetalol administered. patient moves arms, legs and localizes pain. moans with stimulation, but does not open eyes, speak or follow commands.
COWS per work list. abdomen soft, small smear stool. incontinent of large amount shelia urine. lungs with diminished breath sounds. no cough. tachypneic on room air. ngt placement verified, draining green fluid to LIS. wrist restraints maintained for
patient safety.
--- NOTE | 2024-03-21 09:36 | W.PN.HOSP.TC ---
Today's Communication/Plan
-
Continue treatment of opioid withdrawal
Assessment / Plan
Assessment / Plan
Gen-somnolent but arousable
HEENT-NC, AT, anicteric, clear oral mm
Neck-supple
CV-reg, no M, +S1/S2
Lungs-clear B/L
Abd-soft, NT, ND
Ext-no edema
Musculoskeletal-no cyanosis, clubbing
Skin-warm and dry
Acute TME -due to opioid withdrawal syndrome. No evidence of seizures on EEG. Appreciate neurology input. CT head without contrast negative.
Intractable vomiting -NG tube placed 03/20. Abdominal exam is benign. Etiology of vomiting likely due to opioid withdrawal.
Leukocytosis -suspect leukemoid reaction. Doubt infection. Monitor for now.
Opioid withdrawal syndrome -continue protocol.
Hypertensive emergency -blood pressure remains labile and elevated at times. Off nicardipine drip currently. Getting IV labetalol as needed. Continue clonidine.
Hypokalemia -resolved.
Hypomagnesemia -resolved.
Substance abuse -consult psychiatry once stable.
Full code - assumed.
Anticipated Discharge: > 48 hours
Subjective/Interval History
-
Date of Service: March 21, 2024
Patient seen and examined. Remains somnolent, nonverbal. 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 Keeps eyes closed most of the time.
Objective Data
-
Labs:
Laboratory Results
03/21/24
04:37
WBC 23.0 H
Hgb 12.2
Hct 37.1
Plt Count 360 D
Sodium 142
Potassium 3.7
Chloride 109 H
Carbon Dioxide 25
BUN 11
Creatinine 0.8
Glucose 120 H
Calcium 8.7
Vital Signs:
Vital Signs
Temp Pulse Resp BP Pulse Ox
98 F 130 33 151/105 100
03/21/24 08:00 03/21/24 08:21 03/21/24 06:00 03/21/24 08:21 03/21/24 08:00
I&O
03/20/24 03/21/24 03/22/24
06:59 06:59 06:59
Intake Total 2882.5 / 2882.5
Output Total 1550 / 1550
Balance 1332.5 / 1332.5
Review of Systems
-
Unable to obtain full review of systems at this time due to: Acuity
[2024-03-21] MEDS: SUBUTEX 16 MG SL (10:14)
[2024-03-21 10:37] LABS: Phosphorus 2.6 mg/dl (2.5-4.5)
[2024-03-21] MEDS: ZANAFLEX 2 MG PO (11:01)
--- NOTE | 2024-03-21 11:05 | PTCARENOTE ---
patient restless, attempted to pull out NGT. able to speak, oriented to self only. restless, anxious. BP elevated, catapres administered.D/W pharmacist, cloth beamer. reassessed. safe environment maintained
--- NOTE | 2024-03-21 11:54 | W.PN.INTV ---
Documented by User: Don Morales MD, Resident 03/21/24 12:11
Today's Communication / Plan
Recommendations
- Continue to monitor patients vitals and mental status for any abrupt changes
Assessment
-
intravenous drug use:
Opioid withdrawal and methamphetamine abuse
Hypertension, tachycardia, Tachypnea:
- Urine toxicology screen on admission was positive for opiates, fentanyl, amphetamines, methamphetamines, benzo, cocaine
- Today her vitals shows blood pressure at 163/115, pulse 113, resp 33, temp 97.6, and 02 sat 99% on room air.
- Continue IV fluids
- Continue clonidine
- Initiate hydralazine for short term temp control of blood pressure
- Continue Buprenorphine
- Continue as needed Zofran
- Continue as needed Toradol and Tylenol for pain control
- Stop Cardene
- Stop Ativan
Acute change of mental status:
- Patient is lethargic and confused, responds to tactile stimuli
- EEG was inconclusive
- Follow with neuro
Leucocytosis:
- WBC count is 23 today
- Most likely reactive, continue to monitor
Hyperglycemia:
- Glucose levels are 120 today , trending down from 140
- continue to observe
DVT ppx: Lovenox
Subjective Dataa
Subjective Data
Date of Service:
Date of Service: March 21, 2024
Chief Complaint: Ward Helper Follow Up
Subjective:
patient is lethargic and unable to communicate verbally to provide a history.
She is currently on normal saline IV fluid.
No overnight events.
Review of Systems
General: Other (Patient is very lethargic and non verbal)
Objective Data
Data Reviewed
Vital Signs / I&O / Oxygen:
Vital Signs
Temp Pulse Resp BP Pulse Ox
98.1 F 113 29 174/118 100
03/21/24 11:17 03/21/24 11:01 03/21/24 11:00 03/21/24 11:01 03/21/24 11:00
Intake and Output
03/20/24 03/21/24 03/22/24
06:59 06:59 06:59
Intake Total 2882.5 / 2957.5 472.5 / 472.5
Output Total 1550 / 1550
Balance 1332.5 / 1407.5 472.5 / 472.5
SaO2 100
Physical Exam
General: Fever (negative) and Chills (negative)
Cardiovascular: S1-S2, Murmur (negative) and Other (Tachycardia)
Respiratory: Clear, Wheeze (negative) and Crackles (negative)
GI: Soft, Non Distended and Normal Bowel Sounds
Neurology: Awake
Skin: Warm and Dry
Labs/Micro/Reports
Lab Data
03/21/24 04:37
03/21/24 04:37
Microbiology
03/20/24 04:53 Urine Urine Culture - Final
NO GROWTH
03/20/24 06:40 Nose MRSA Screen - Final
No Methicillin Resistant Staphylococcus aureus isolated.

Documented by User: Yariel Mendoza MD 03/21/24 12:36
Today's Communication / Plan
Recommendations
- Continue to monitor patients vitals and mental status for any abrupt changes
I reviewed this patients case independently and in conjunction with the resident. I personally examined the patient. Patient's complex medical history, laboratory evaluations, events over the last 24 hours, radiographs, microbiological data were
all personally reviewed.
Agree with documented assessment and plan
Critical care statement: A total of 45 minutes of critical care time was provided for this patient today. This includes management of unstable vital signs, evaluation of the patient at bedside, reviewing the patient's pertinent medical records
including radiographs, microbiology, laboratory evaluations, and discussion with primary team, consultants, pharmacy, charge nurse, critical care nursing, and respiratory therapy.
Yariel Mendoza MD, FCCP, [facility]
[2024-03-21] MEDS: APRESOLINE 5 MG IV ×2 (13:06→20:05)
--- NOTE | 2024-03-21 13:49 | PTCARENOTE ---
prn dose hydralazine given for hypertension. ineffective. prn dose trandate given
--- NOTE | 2024-03-21 15:13 | CM ---
CM following re: discharge planning.
Discussed in Rounds, reviewed pt's chart. Two guards at bedside.
Per Rounds meeting, pt restless, anxious, able to speak, oriented to self only, continue supportive care.
Per guars, this is a [facility]
D/C plan: unknown at this time and will depend on pt's progresses
CM will follow with discharge plan updates as hospitalization progresses
--- NOTE | 2024-03-21 15:15 | PTCARENOTE ---
Addendum entered by Geovanna Lowery RN 03/21/24 16:10:
orders received, one time dose catapres and prn dose vasotec administered
Original Note:
blood pressure remains elevated in spite of medications administered. TT to labor representative to update. orders pending
[2024-03-21] MEDS: CATAPRES 0.1 MG PO (16:05)
[2024-03-21] MEDS: VASOTEC 1.25 MG IV ×2 (16:06→22:14)
[2024-03-21] MEDS: LOVENOX 40 MG SC (18:11)
[2024-03-21] MEDS: CATAPRES 0.2 MG TUBE ×2 (18:11→23:31)
--- NOTE | 2024-03-21 18:30 | PTCARENOTE ---
blood pressure remains elevated. prn dose trandate administered
--- NOTE | 2024-03-21 20:00 | PTCARENOTE ---
Received patient drowsy, intermittently responsive, asking for water. Mouth moistened with oral swab, mouth care done. Patient oriented to self and time, not place. COWS Q4. Normal sinus, hypertensive, EXECUTIVE ADMINISTRATOR aware, PRNs given. Normothermic, +1
generalized anasarca. 96% on room air, lung sounds diminished. Abdomen soft, nontender, no BM, hyperactive bowel sounds. Purewick in place draining yellow urine. PIVs patent, WNL. D5 1/2 NSS ongoing per order. Hourly rounding and patient safety
checks ongoing.
[2024-03-22] VITALS (54 sets, daily range): BP systolic 116–184; BP diastolic 78–125; BMI 19.0
[2024-03-22] MEDS: CARDENE 200 IV ×2 (00:22→01:28)
--- NOTE | 2024-03-22 01:08 | PTCARENOTE ---
Patient continuously hypertensive to 190s/200s systolic despite PRNs. Cardene gtt restarted. Bladder scanned for 114 due to decreased output. Otherwise patient assessment unchanged from previous, hourly rounding and patient safety checks ongoing.
--- NOTE | 2024-03-22 04:00 | PTCARENOTE ---
Cardene gtt on and off to maintain SBP 140-160. Otherwise patient assessment unchanged from previous.
--- NOTE | 2024-03-22 04:29 | PTCARENOTE ---
Patient pulled out NG tube, new one placed. Saturated with urine, bed sheets changed, gown changed, CHG bath done. New purewick and brief. Repositioned, labs sent.
[2024-03-22 04:48] LABS: % Basophils 0.4 % (0-2); % Eosinophils 3.8 % (0-6); % Immature Granulocytes 0.5 % (0-0.5); % Lymphocytes 17.3 % (20.5-51.1); % Monocytes 6.3 % (1.7-9.3); % Neutrophils 71.7 % (42.2-75.2); Absolute Basophils 0.1 10^3/uL (0-0.2); Absolute Eosinophils 0.7 10^3/uL (0-0.7); Absolute Immature Granulocytes 0.1 10^3/uL (0-0.05); Absolute Lymphocytes 2.9 10^3/uL (1.2-3.4); Absolute Monocytes 1.1 10^3/uL (0.1-0.6); Absolute Neutrophils 12.1 10^3/uL (1.4-6.5); Hematocrit 38.1 % (37.0-47.0); Hemoglobin 12.5 g/dL (12.0-16.0); Mean Corp Hgb Conc. 32.8 g/dL (33.0-37.0); Mean Corpuscular Hgb 26.8 pg (27.0-31.0); Mean Corpuscular Volume 81.6 fL (81.0-99.0); Mean Platelet Volume 8.9 fL (7.4-10.4); Nucleated Red Blood Cells % 0 %; Platelet Count 337 10^3/uL (130-400); Red Blood Cell Count 4.67 10^6/uL (4.20-5.40); Red Cell Dist. Width 15.2 % (11.5-14.5); White Blood Cell Count 16.9 10^3/uL (4.8-10.8)
[2024-03-22 05:17] LABS: Blood Urea Nitrogen 13 mg/dl (7-17); Carbon Dioxide 27 mmol/L (22-30); Chloride 107 mmol/L (98-107); Estimated Creatinine Clearance 104 ml/min; Glucose 102 mg/dl (70-99); Potassium 3.1 mmol/L (3.5-5.1); Sodium 141 mmol/L (135-145); eGFR > 60.00
[2024-03-22] MEDS: CATAPRES 0.2 MG TUBE ×4 (09:01→23:15)
[2024-03-22] MEDS: SUBUTEX 16 MG SL (09:01)
[2024-03-22] MEDS: KCL ELIXIR 40 MEQ TUBE (09:02)
[2024-03-22] MEDS: TYLENOL ORAL SOLUTION 650 MG TUBE ×4 (09:02→23:15)
--- NOTE | 2024-03-22 09:47 | PTCARENOTE ---
report received, assessments per work list. patient arouses, complaints of 'cold'. monitor nsr, prolonged QT. wrist restraints maintained for patient safety. lungs diminished,no cough. ngt placement verified, abdomen soft. hypoactive bowel sounds.
incontinent of large amt urine. care provided, pure wick in place
--- NOTE | 2024-03-22 10:00 | W.PN.HOSP.TC ---
Addendum entered and electronically signed by Dk De La Cruz DO 03/22/24 12:56:
Obstruction series with nonobstructive bowel gas pattern. Suspect opioid-induced ileus. Continue NG tube.
Original Note:
Today's Communication/Plan
-
Replete potassium
Continue IV fluids
N.p.o.
NG tube
Obstruction series
Resume nicardipine drip
Assessment / Plan
Assessment / Plan
Gen-more awake today, NAD
HEENT-NC, AT, anicteric, clear oral mm
Neck-supple
CV-reg, no M, +S1/S2
Lungs-clear B/L
Abd-soft, NT, ND
Ext-no edema
Musculoskeletal-no cyanosis, clubbing
Skin-warm and dry
Acute TME -due to opioid withdrawal syndrome. No evidence of seizures on EEG. Appreciate neurology input. CT head without contrast negative. Mental status improving.
Intractable vomiting -NG tube placed 03/20. Abdominal exam is benign. Etiology of vomiting likely due to opioid withdrawal. Check obstruction series today. NG tube remains in place, 800 cc output over the past 24 hours.
Leukocytosis -suspect leukemoid reaction. Doubt infection. Monitor for now. WBCs trending down. Afebrile.
Opioid withdrawal syndrome -continue protocol.
Hypertensive emergency -blood pressure remains labile and elevated at times. Off nicardipine drip currently, would resume nicardipine at 2.5 mg IV per hour.
Clonidine patch discontinued by intensive care service. Clonidine via tube increased but unclear how much she is absorbing.
Hypokalemia -3.1 today, continue repletion.
Hypomagnesemia -resolved.
Substance abuse -consult psychiatry once stable.
Full code - assumed.
Anticipated Discharge: > 48 hours
Subjective/Interval History
-
Date of Service: March 22, 2024
Patient seen and examined. Asking for ice chips. Complaining of abdominal pain. Looks comfortable.
Objective Data
-
Labs:
Laboratory Results
03/22/24
04:33
WBC 16.9 H
Hgb 12.5
Hct 38.1
Plt Count 337
Sodium 141
Potassium 3.1 L
Chloride 107
Carbon Dioxide 27
BUN 13
Creatinine 0.6
Glucose 102 H
Calcium 9.0
Vital Signs:
Vital Signs
Temp Pulse Resp BP Pulse Ox
97.6 F 92 23 138/98 100
03/22/24 08:34 03/22/24 09:01 03/22/24 06:20 03/22/24 09:01 03/22/24 06:20
I&O
03/21/24 03/22/24 03/23/24
06:59 06:59 06:59
Intake Total 2882.5 / 2957.5 2050.0 / 2050.0
Output Total 1550 / 1550 1675 / 1675
Balance 1332.5 / 1407.5 375.0 / 375.0
Review of Systems
-
History Source: Patient
All other systems: Reviewed and negative
[2024-03-22] MEDS: D5/0.45%NACL IV (10:12)
[2024-03-22] MEDS: D5/0.45%NSS with KCL 20 MEQ 1000 IV (10:17)
--- NOTE | 2024-03-22 10:46 | W.PN.INTV ---
Addendum entered and electronically signed by Lina Waller MD 03/22/24 11:15:
Patient seen and examined independently by myself
Agree with plan below as outlined by resident
Overnight, no significant issues except for patient removed NG tube. Mental status remains suboptimal. Labile blood pressure noted, on Cardene therapy. Did not respond to hydralazine
Present systolic pressure 130s, heart rate 90s
Exam unremarkable
Chest x-ray without acute findings
leukocytosis noted
A/P
Continue with supportive care, antihypertensive therapy.
Cardene drip continues, increase hydralazine to 10 mg as needed
Agree with obstruction series. Patient with nausea, emesis. Follow-up for bowel movement
NG tube remains in place
Potassium repleted this morning, repeat in the p.m.
Leukocytosis noted, no evidence of active infection. Follow closely
DVT prophylaxis: Lovenox
Reviewed with critical care nursing
Original Note:
Today's Communication / Plan
Recommendations
.
Assessment
-
intravenous drug use:
Opioid withdrawal and methamphetamine abuse
Hypertension, tachycardia, Tachypnea:
- COW score 6
- Urine toxicology screen on admission was positive for opiates, fentanyl, amphetamines, methamphetamines, benzo, cocaine
- Patients vitals ranged from 140-190's systolic and from 100-127 diastolic. Respiratory rate ranged from 6-37. Heart rate ranged from 77-133.
- Continue IV fluids
- Continue clonidine
- Increase Hydralazine to 10 mg from 5
- Continue Buprenorphine
- Continue as needed Zofran
- Continue as needed Toradol and Tylenol for pain control
- Continue Cardene as it is effectively managing blood pressure
- Ativan PRN
- Consult psych once stabilized
Hypokalemia:
- 3.1 today
- Recheck potassium at 4 pm
Acute change of mental status:
- Patient is lethargic and confused, responds to tactile stimuli
- EEG was inconclusive
- Follow with neuro
Leucocytosis:
- WBC count is 16 trending down from 23 yesterday, patient afebrile
- Most likely reactive, continue to monitor
Hyperglycemia:
- Glucose levels are trending down
- continue to observe
- obstruction series ordered by hospitalist, remove NG tube pending x rays
Subjective Dataa
Subjective Data
Date of Service:
Date of Service: March 22, 2024
Chief Complaint: Quality Eng Follow Up and Pulmonary Follow Up
Subjective:
Patients blood pressure range was from 140-190's systolic and from 100-127 diastolic. Respiratory rate ranged from 6-37. Heart rate ranged from 77-133.
Currently on IV fluids. Has NG tube inserted.
Patient is still lethargic and unable to verbally communicate history.
Review of Systems
General: Other (Lethargic and unable to communicate )
Objective Data
Data Reviewed
Vital Signs / I&O / Oxygen:
Vital Signs
Temp Pulse Resp BP Pulse Ox
97.6 F 89 27 147/105 100
03/22/24 08:34 03/22/24 10:00 03/22/24 10:00 03/22/24 10:00 03/22/24 10:00
Intake and Output
03/21/24 03/22/24 03/23/24
06:59 06:59 06:59
Intake Total 2882.5 / 2957.5 2050.0 / 2137.5 457.5 / 457.5
Output Total 1550 / 1550 1675 / 1675
Balance 1332.5 / 1407.5 375.0 / 462.5 457.5 / 457.5
SaO2 100
Physical Exam
General: Respiratory Distress (n) and Comfortable
HEENT: Normocephalic, Anicteric and Moist Mucous Membranes
Cardiovascular: Regular Rhythm
Respiratory: Wheeze (n), Crackles (n), Rhonchi (n), Non-Labored Respirations, Accessory Resp Muscle Use (n) and Stridor
GI: Soft, Non Distended and Non Tender
Neurology: Awake and No Motor Deficits
Skin: Warm, Good Color, Cyanosis (n), Jaundice (n) and Rash
Labs/Micro/Reports
Lab Data
03/22/24 04:33
Microbiology
03/20/24 04:53 Urine Urine Culture - Final
NO GROWTH
03/20/24 06:40 Nose MRSA Screen - Final
No Methicillin Resistant Staphylococcus aureus isolated.
[2024-03-22] MEDS: TRANDATE 10 MG IV ×2 (12:42→20:48)
--- NOTE | 2024-03-22 12:55 | PTCARENOTE ---
patient taken and returned from Xray. incontinent moderate amount soft formed brown stool. blood pressure trends as noted. scheduled medications administered. prn dose trandate given. remains arousable. orient to self only. able to answer simple
questions.
[2024-03-22] MEDS: APRESOLINE 10 MG IV (14:03)
[2024-03-22] MEDS: VASOTEC 1.25 MG IV ×2 (15:37→23:15)
--- NOTE | 2024-03-22 15:43 | PTCARENOTE ---
patient reassessed. more alert, oriented to person and place. affect flat. labs sent. multiple prn's given for systolic BP>160. see MAR
[2024-03-22 15:56] LABS: Potassium 3.7 mmol/L (3.5-5.1)
[2024-03-22] MEDS: LOVENOX 40 MG SC (17:34)
--- NOTE | 2024-03-22 19:51 | PTCARENOTE ---
Received patient AAOx3, drowsy, slow speech, flat affect. KLINE, b/l wrist restraints. Normal sinus/sinus tach, 90s-100s, normothermic, BP 140s/90s. Trace generalized anasarca, palpable radial and pedal pulses b/l. 100% on room air, lung sounds
diminished throughout. Hypoactive bowel sounds, abdomen soft and flat. Right nare NG tube at 68 cm to LIWS putting out yellow drainage. Incontinent of urine and stool. PIVs patent, WNL, IVF ongoing per order. Hourly rounding and patient safety
checks ongoing.
[2024-03-23] VITALS (40 sets, daily range): BP systolic 147–187; BP diastolic 92–130; BMI 18.9
[2024-03-23] MEDS: APRESOLINE 10 MG IV ×4 (00:16→22:17)
[2024-03-23] MEDS: D5/0.45%NSS with KCL 20 MEQ 1000 IV ×3 (00:19→20:35)
--- NOTE | 2024-03-23 00:57 | PTCARENOTE ---
All PRNs given for BP, see MAR. Bladder scanned for 13, no urine output. Otherwise patient assessment unchanged from previous.
[2024-03-23] MEDS: TRANDATE 10 MG IV ×3 (02:24→20:52)
[2024-03-23 04:32] LABS: Hematocrit 37.7 % (37.0-47.0); Hemoglobin 11.9 g/dL (12.0-16.0); Mean Corp Hgb Conc. 31.6 g/dL (33.0-37.0); Mean Corpuscular Hgb 26.7 pg (27.0-31.0); Mean Corpuscular Volume 84.7 fL (81.0-99.0); Mean Platelet Volume 8.9 fL (7.4-10.4); Platelet Count 273 10^3/uL (130-400); Red Blood Cell Count 4.45 10^6/uL (4.20-5.40); Red Cell Dist. Width 15.2 % (11.5-14.5); White Blood Cell Count 30.3 10^3/uL (4.8-10.8)
[2024-03-23 04:41] LABS: Blood Urea Nitrogen 22 mg/dl (7-17); Calcium 8.9 mg/dl (8.4-10.2); Carbon Dioxide 20 mmol/L (22-30); Chloride 108 mmol/L (98-107); Estimated Creatinine Clearance 104 ml/min; Glucose 96 mg/dl (70-99); Potassium 3.9 mmol/L (3.5-5.1); Sodium 141 mmol/L (135-145); eGFR > 60.00
[2024-03-23] MEDS: TYLENOL ORAL SOLUTION 650 MG TUBE ×2 (05:21→17:44)
[2024-03-23] MEDS: CATAPRES 0.2 MG TUBE ×3 (05:21→17:43)
--- NOTE | 2024-03-23 05:45 | PTCARENOTE ---
Patient had a soft, large BM. Incontinent of urine. Changed, CHG bath done, labs sent. Consistently given PRNs for hypertension. Bladder scanned for 248 mls. Otherwise patient assessment unchanged from previous.
[2024-03-23 07:35] LABS: Absolute Neutrophils -Man Diff 28.4 10^3/uL (1.4-6.5); Band Neutrophils 10 % (0-3); Lymphocytes 3 % (20-51); Monocytes 3 % (2-9); Platelets Checked Yes; Segmented Neutrophils 84 % (42-75)
[2024-03-23 07:36] LABS: Normal RBC Morphology Yes; Total Cells Counted 100
[2024-03-23] MEDS: SUBUTEX 16 MG SL (07:48)
[2024-03-23] MEDS: KCL ELIXIR 40 MEQ TUBE (07:48)
--- NOTE | 2024-03-23 08:00 | PTCARENOTE ---
Received pt sleeping.Awakens to voice, sleeping intermittently.+KLINE.Occasional facial tremor noted.Generalized weakness noted.c/o abdominal pain when asked.SR-ST noted.IVF infusing.POX 98% on RA.Decreased breath sounds throughout.Weak non productive
cough.[place] intact and draining bilious fluid.Incontinent of large amount yellow urine.Skin integrity as documented.
--- NOTE | 2024-03-23 08:27 | W.PN.HOSP.TC ---
Today's Communication/Plan
-
Continue current care
Assessment / Plan
Assessment / Plan
Gen-more awake today, NAD
HEENT-NC, AT, anicteric, clear oral mm
Neck-supple
CV-reg, no M, +S1/S2
Lungs-clear B/L
Abd-soft, NT, ND
Ext-no edema
Musculoskeletal-no cyanosis, clubbing
Skin-warm and dry
Acute TME -due to opioid withdrawal syndrome. No evidence of seizures on EEG. Appreciate neurology input. CT head without contrast negative. Mental status improving.
Opioid-induced ileus -NG tube placed 03/20. Abdominal exam is benign. Obstruction series negative. NG tube remains in place, 575 cc output over the past 24 hours. Had 2 bowel movements in the past 24 hours. Ileus slowly improving.
Leukocytosis -suspect leukemoid reaction. Doubt infection. Monitor for now. WBCs trending up. Afebrile.
Opioid withdrawal syndrome -continue protocol.
Hypertensive emergency -blood pressure remains labile and elevated at times. Continue clonidine, as needed antihypertensives.
Hypokalemia - resolved.
Hypomagnesemia -resolved.
Substance abuse -consult psychiatry once stable.
Full code - assumed.
Anticipated Discharge: > 48 hours
Subjective/Interval History
-
Date of Service: March 23, 2024
Patient seen and examined. Asking for ice chips.
Objective Data
-
Labs:
Laboratory Results
03/23/24
03:55
WBC 30.3 H
Hgb 11.9 L
Hct 37.7
Plt Count 273
Sodium 141
Potassium 3.9
Chloride 108 H
Carbon Dioxide 20 L
BUN 22 H
Creatinine 0.6
Glucose 96
Calcium 8.9
Vital Signs:
Vital Signs
Temp Pulse Resp BP Pulse Ox
98.7 F 110 28 152/99 97
03/23/24 08:00 03/23/24 06:30 03/23/24 06:30 03/23/24 06:00 03/23/24 06:30
I&O
03/22/24 03/23/24 03/24/24
06:59 06:59 06:59
Intake Total 2050.0 / 2137.5 2208.5 / 2208.5
Output Total 1675 / 1675 775 / 775
Balance 375.0 / 462.5 1433.5 / 1433.5
Review of Systems
-
History Source: Patient
All other systems: Reviewed and negative
--- NOTE | 2024-03-23 10:40 | W.PN.INTV ---
Addendum entered and electronically signed by Lina Waller MD 03/23/24 12:50:
Patient seen and examined independently by myself.
Reviewed correspondence below, agree with assessment and plan as outlined by resident
Overnight, no major issues. Patient appears to be more alert and more conversant. She is asking for ice chips. Vital stable through the night. NG output minimal
Physical exam
NG tube in place
Chest exam is clear, decreased breath sounds, poor inspiratory effort.
There is abdominal pain on exam but no rebound or guarding. Abdomen is soft. Positive bowel sounds
Extremities no clubbing or cyanosis
No murmurs
Neurologically, follows commands but generally weak
Data reviewed
White count 30.3
Obs series unremarkable
A/P
Patient continues to improve from neurological standpoint but still lethargic at times
Continue with treatment for opioid withdrawal syndrome, protocol continues
Hypertension noted, overall trend of blood pressure seems to be improved
Continue with clonidine, as needed hydralazine
NG tube to be removed. Patient had bowel movement
Asking for ice chips
Aspiration precautions, assessment
Leukocytosis noted
Encourage out of bed to chair, airway clearance, incentive spirometry
Sequential teds for DVT prophylaxis
Status promptly, out of bed to chair
Likely okay for transfer out of ICU in the next 24 hours
Reviewed with critical care nursing, respiratory care, pharmacy, primary service
Original Note:
Today's Communication / Plan
Recommendations
Continue to monitor patient vitals
Continue protocol for opioid withdrawals and methamphetamine abuse
Assessment
-
Patient systolic blood pressure ranges from 1 31-1 73, diastolic range from 86-1 12, pulse range from 87 120, temperature 98.7, oxygen saturation 97% on room air
Toxic metabolic encephalopathy:
Opioid withdrawal and methamphetamine abuse
Hypertension, tachycardia, Tachypnea:
- COW score 6
- Urine toxicology screen on admission was positive for opiates, fentanyl, amphetamines, methamphetamines, benzo, cocaine
- Continue IV fluids
- Continue clonidine
- Increase Hydralazine to 10 mg from 5 and use as needed
- Continue Buprenorphine
- Continue as needed Zofran
- Continue as needed Toradol and Tylenol for pain control
- Continue Cardene as it is effectively managing blood pressure
- Ativan PRN
- Consult psych once stabilized
Hypokalemia:
-Resolved
Today is 3.9
Acute change of mental status:
- Patient is lethargic and confused, responds to tactile stimuli, verbal communication is improving
- EEG was inconclusive
- Follow with neuro
Leucocytosis:
-WBC count is 30 trending up from 16 yesterday, patient is afebrile
- Most likely reactive, continue to monitor, if it continues to increase then x-ray for sources of aspiration
-Incentive spirometry
Hyperglycemia:
- Glucose levels are trending down
- continue to observe
-Remove nasogastric tube and have nurse do bedside aspiration risk assessment.
Subjective Dataa
Subjective Data
Date of Service:
Date of Service: March 23, 2024
Chief Complaint: [employer] Brake Technician Follow Up and Pulmonary Follow Up
Subjective:
No overnight events
Patient is complaining of abdominal pain. Patient is NPO. Patient is lethargic although doing much better in terms of verbal communication over the past 24 hours.
Currently on IV fluids normal saline. Currently on has a feeding tube placed, chest x-ray yesterday showed nonobstructive bowel pattern.
Review of Systems
General: Fever (Negative), Sweats (Negative), Chills (Negative ) and Pain (Abdominal)
Cardiopulmonary: Dyspnea (Negative), Cough (Negative), Wheezing (Negative) and Chest Pain (Negative )
GI: Abdominal Pain, Nausea, Vomiting (negative), Diarrhea (negative), Constipation (negative) and Tube Feeding
Neuro: Headache (negative), Dizziness (negative) and Weakness (negative)
Objective Data
Data Reviewed
Vital Signs / I&O / Oxygen:
Vital Signs
Temp Pulse Resp BP Pulse Ox
98.7 F 110 28 152/99 97
03/23/24 08:00 03/23/24 06:30 03/23/24 06:30 03/23/24 06:00 03/23/24 06:30
Intake and Output
03/22/24 03/23/24 03/24/24
06:59 06:59 06:59
Intake Total 2050.0 / 2137.5 2208.5 / 2208.5
Output Total 1675 / 1675 775 / 775
Balance 375.0 / 462.5 1433.5 / 1433.5
SaO2 97
Physical Exam
General: Respiratory Distress (n) and Comfortable
HEENT: Normocephalic, Anicteric and Moist Mucous Membranes
Cardiovascular: Regular Rhythm
Respiratory: Wheeze (n), Crackles (n), Rhonchi (n), Non-Labored Respirations, Accessory Resp Muscle Use (n) and Stridor
GI: Soft, Non Distended and Non Tender
Neurology: Awake and No Motor Deficits
Skin: Warm, Good Color, Cyanosis (n), Jaundice (n) and Rash
Labs/Micro/Reports
Lab Data
03/23/24 03:55
03/23/24 03:55
Microbiology
03/20/24 04:53 Urine Urine Culture - Final
NO GROWTH
03/20/24 06:40 Nose MRSA Screen - Final
No Methicillin Resistant Staphylococcus aureus isolated.
--- NOTE | 2024-03-23 12:00 | PTCARENOTE ---
Pt assessed.No change in assessment noted.Pt incontinent of large amount of brown liquid stool.
[2024-03-23] MEDS: D5/0.45%NSS with KCL 20 MEQ IV (12:56)
--- NOTE | 2024-03-23 13:00 | PTCARENOTE ---
[place] swallow assessment completed as ordered.Pt passed.[place] NGT discontinued as ordered.
[2024-03-23] MEDS: TYLENOL ORAL SOLUTION TUBE (14:04)
--- NOTE | 2024-03-23 14:04 | PTCARENOTE ---
Labetalol given for 183/122
[2024-03-23] MEDS: VASOTEC 1.25 MG IV (15:44)
--- NOTE | 2024-03-23 15:44 | PTCARENOTE ---
Vasotec given for .
--- NOTE | 2024-03-23 16:00 | PTCARENOTE ---
Pt assessed.Pt is more awake and conversant.Repeatedly asking for ice chips or water.Hydralazine given for 187/123.Pt encouraged to cough and deep breath.Attempting to use IS.
--- NOTE | 2024-03-23 17:29 | CM ---
Patient from [facility]
NGT remains in place
obstruction series neg
PLAN: [facility]
[2024-03-23] MEDS: LOVENOX 40 MG SC (17:43)
--- NOTE | 2024-03-23 21:26 | PTCARENOTE ---
On assessment pt aaox3 but drowsy, generalized weakness, denies pain and SOB at this time. SR on the monitor, BP high, PRN meds given see MAR and GROUP UNDERWRITER made aware, 97% RA, incontinent of B/B, rectal trumpet in place, call diaz in reach.
[2024-03-24] VITALS (38 sets, daily range): BP systolic 113–182; BP diastolic 68–116; BMI 18.6
--- NOTE | 2024-03-24 | PTCARENOTE ---
no changes from prior assessment, pt repositioning self in bed, call diaz in reach
[2024-03-24] MEDS: TYLENOL ORAL SOLUTION 650 MG PO ×2 (00:02→06:20)
[2024-03-24] MEDS: CATAPRES 0.2 MG PO ×4 (00:02→19:59)
[2024-03-24] MEDS: APRESOLINE 10 MG IV ×2 (03:33→08:32)
--- NOTE | 2024-03-24 04:47 | PTCARENOTE ---
pt remains drowsy but aox3, bed bath given, pt repositioned, call diaz in reach
[2024-03-24 05:06] LABS: % Basophils 0.2 % (0-2); % Eosinophils 0.1 % (0-6); % Immature Granulocytes 0.4 % (0-0.5); % Lymphocytes 9.5 % (20.5-51.1); % Monocytes 5.4 % (1.7-9.3); % Neutrophils 84.4 % (42.2-75.2); Absolute Immature Granulocytes 0.1 10^3/uL (0-0.05); Absolute Lymphocytes 1.8 10^3/uL (1.2-3.4); Absolute Neutrophils 15.7 10^3/uL (1.4-6.5); Hemoglobin 12.3 g/dL (12.0-16.0); Mean Corp Hgb Conc. 32.4 g/dL (33.0-37.0); Mean Corpuscular Volume 83.3 fL (81.0-99.0); Mean Platelet Volume 9.1 fL (7.4-10.4); Nucleated Red Blood Cells % 0 %; Platelet Count 248 10^3/uL (130-400); Red Blood Cell Count 4.56 10^6/uL (4.20-5.40); Red Cell Dist. Width 15.6 % (11.5-14.5); White Blood Cell Count 18.6 10^3/uL (4.8-10.8)
[2024-03-24 05:31] LABS: Blood Urea Nitrogen 23 mg/dl (7-17); Calcium 8.9 mg/dl (8.4-10.2); Carbon Dioxide 22 mmol/L (22-30); Chloride 106 mmol/L (98-107); Estimated Creatinine Clearance 102 ml/min; Glucose 103 mg/dl (70-99); Potassium 3.9 mmol/L (3.5-5.1); Sodium 136 mmol/L (135-145); eGFR > 60.00
[2024-03-24] MEDS: SUBUTEX 16 MG SL (08:32)
[2024-03-24] MEDS: KCL ELIXIR 40 MEQ PO (08:33)
--- NOTE | 2024-03-24 08:49 | W.PN.HOSP.TC ---
Today's Communication/Plan
-
Clear liquid diet
Procardia
PT/OT
Out of bed to chair
Stool studies
Assessment / Plan
Assessment / Plan
Gen-more awake today, NAD
HEENT-NC, AT, anicteric, clear oral mm
Neck-supple
CV-reg, no M, +S1/S2
Lungs-clear B/L
Abd-soft, NT, ND
Ext-no edema
Musculoskeletal-no cyanosis, clubbing
Skin-warm and dry
Acute TME -due to opioid withdrawal syndrome. No evidence of seizures on EEG. Appreciate neurology input. CT head without contrast negative. Mental status improving.
Opioid-induced ileus -NG tube removed yesterday. Abdominal exam is benign. Obstruction series negative. Ileus resolved. Having loose stools now. Check stool studies. Start clear liquids. Fecal management system in place.
Leukocytosis -suspect leukemoid reaction. Doubt infection. Monitor for now. WBCs trending up. Afebrile.
Opioid withdrawal syndrome -continue protocol.
Hypertensive emergency -blood pressure remains labile and elevated at times. Off nicardipine drip. Continue clonidine, as needed antihypertensives. Add Procardia XL 30 mg daily.
Hypokalemia - resolved.
Hypomagnesemia -resolved.
Substance abuse -consult psychiatry once stable.
Full code - assumed.
PT/OT
Anticipated Discharge: > 48 hours
Subjective/Interval History
-
Date of Service: March 24, 2024
Patient seen and examined. Complaining of thirst.
Objective Data
-
Labs:
Laboratory Results
03/24/24
04:57
WBC 18.6 H
Hgb 12.3
Hct 38.0
Plt Count 248
Sodium 136
Potassium 3.9
Chloride 106
Carbon Dioxide 22
BUN 23 H
Creatinine 0.6
Glucose 103 H
Calcium 8.9
Vital Signs:
Vital Signs
Temp Pulse Resp BP Pulse Ox
98.6 F 87 19 182/115 97
03/24/24 08:39 03/24/24 08:32 03/24/24 08:00 03/24/24 08:32 03/24/24 08:00
I&O
03/23/24 03/24/24 03/25/24
06:59 06:59 06:59
Intake Total 2208.5 / 2278.5 1969 / 1969
Output Total 775 / 775 425 / 425
Balance 1433.5 / 1503.5 1545 / 1545
Review of Systems
-
History Source: Patient
All other systems: Reviewed and negative
--- NOTE | 2024-03-24 09:30 | PTCARENOTE ---
pt encouraged OOB, refused with much encouragement finally accepted. Minimal participation in transfer. Pt was OOB for an hour when she was observed purposefully scooting forward to edge of chair, repositioned for safety- but pt continues to
purposefully scoot to edge of chair. D/T concern for safety and fall risk pt assisted back to bed, again requiring much encouragement and demonstrating minimal participation in transfer.
[2024-03-24] MEDS: D5/0.45%NSS with KCL 20 MEQ 1000 IV (10:25)
[2024-03-24] MEDS: PROCARDIA XL (EXTENDED RELEASE) 30 MG PO (10:26)
--- NOTE | 2024-03-24 10:42 | W.PN.INTV ---
Addendum entered and electronically signed by Lina Waller MD 03/24/24 11:28:
Positive C. difficile culture noted. Oral vancomycin started per primary service
Addendum entered and electronically signed by Lina Waller MD 03/24/24 11:05:
Patient seen and examined independently by myself.
Resident assessment and plan reviewed below and agree with
Overnight, no major issues. NG tube has been discontinued. Patient was out of bed and mental status is improving however still with lethargy
Diet advanced to clears
Physical exam unchanged. Patient does respond but is lethargic most of the day.
Moves all extremities
Rectal tube in place for diarrhea
Data reviewed
White count decreasing
A/P
Moving forward, continue with management of opioid withdrawal
Remains on buprenorphine
Continue with blood pressure monitoring
Will discontinue enalapril, discontinue labetalol as needed
Continue with nifedipine, hydralazine as needed
Loose stool noted. Follow
Advance diet as able, out of bed to chair
Continue with DVT prophylaxis. Remains on Lovenox and mechanical prophylaxis
For transfer out of ICU to telemetry. Orders placed.
Reviewed primary service
reviewed with critical care nursing, pharmacy, respiratory care
We will sign off. Please call with questions
Original Note:
Today's Communication / Plan
Recommendations
Continue to monitor patient's vitals
Transfer patient to floors
Assessment
-
Patient is a 39-year-old female full code with a past medical history of IV opioid and methamphetamine abuse who was recently started on withdrawal protocols.
Patient's systolic blood pressure ranged from 148 to 182, diastolic blood pressure ranged from 85 to 1 30, pulse was from 78 to 111, respiratory rate from 17 to 40, temperature is 98.6, oxygen saturation is 97% on room air
Toxic metabolic encephalopathy:
Opioid withdrawal and methamphetamine abuse
Hypertension, tachycardia, Tachypnea:
- COW score 6
- Urine toxicology screen on admission was positive for opiates, fentanyl, amphetamines, methamphetamines, benzo, cocaine
- Continue IV fluids
- Continue clonidine
- Increase Hydralazine to 10 mg from 5 and use as needed
- Continue Buprenorphine
- Continue as needed Zofran
- Continue as needed Toradol and Tylenol for pain control
- Continue Cardene as it is effectively managing blood pressure
- Ativan PRN
- Consult psych once stabilized
- Discontinue labetolol and enalapril
Leucocytosis:
-WBC count is 18.6 today trending down from 30 yesterday
- Most likely reactive, continue to monitor, if it continues to increase then x-ray for sources of aspiration
-Incentive spirometry
Acute change of mental status:
- Patient is lethargic and confused, responds to tactile stimuli, verbal communication is improving
- EEG was inconclusive
- Follow with neuro
Hyperglycemia:
- Glucose levels are trending down
- continue to observe
-Nasogastric tube has been removed and patient is currently under aspiration protocols
DVT prophylaxis�Lovenox
Subjective Dataa
Subjective Data
Date of Service:
Date of Service: March 24, 2024
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
Subjective:
Overnight events:
Nasogastric tube was pulled out yesterday patient is still having trouble swallowing, overnight BP was running high in the systolic was in the 170s to 180s to dose of hydralazine 9 at 10:00 and then a dose of labetalol at 9:00 was administered,
Dorothy change patient's diet to clear liquids, currently pumping IV fluids normal saline, rectal trumpet was inserted with FMS system. Patient also propped up in the chair but started scooting of her chair was placed back in the bed. Concerns for
behavioral/psychiatric issues.
Acute medical problems:
Patient is lethargic and responding to verbal commands, much better than the past 24 hours. She is nodding her head yes when asked if she has abdominal pain and abdomen communicate where the intensity of the abdominal pain.
Review of Systems
General: Fever (Negative), Sweats (Negative), Chills (Negative ) and Pain (Abdominal)
Cardiopulmonary: Dyspnea (Negative), Cough (Negative), Wheezing (Negative) and Chest Pain (Negative )
GI: Abdominal Pain, Nausea, Vomiting (negative), Diarrhea (negative), Constipation (negative) and Tube Feeding
Neuro: Headache (negative), Dizziness (negative) and Weakness (negative)
Objective Data
Data Reviewed
Vital Signs / I&O / Oxygen:
Vital Signs
Temp Pulse Resp BP Pulse Ox
98.6 F 100 19 149/87 97
03/24/24 08:39 03/24/24 10:26 03/24/24 08:00 03/24/24 10:26 03/24/24 08:00
Intake and Output
03/23/24 03/24/24 03/25/24
06:59 06:59 06:59
Intake Total 2208.5 / 2278.5 1970 / 2040 250 / 250
Output Total 775 / 775 425 / 525 100 / 100
Balance 1433.5 / 1503.5 1545 / 1515 150 / 150
SaO2 97
Physical Exam
General: Respiratory Distress (n) and Comfortable
HEENT: Normocephalic, Anicteric and Moist Mucous Membranes
Cardiovascular: Regular Rhythm
Respiratory: Wheeze (n), Crackles (n), Rhonchi (n), Non-Labored Respirations, Accessory Resp Muscle Use (n) and Stridor
GI: Soft, Non Distended and Non Tender
Neurology: Awake and No Motor Deficits
Skin: Warm, Good Color, Cyanosis (n), Jaundice (n) and Rash
Labs/Micro/Reports
Lab Data
03/24/24 04:57
03/24/24 04:57
Microbiology
03/24/24 09:21 Feces/Stool C. difficile GDH Antigen & Toxins - Final
Toxigenic C.difficile Positive
03/20/24 04:53 Urine Urine Culture - Final
NO GROWTH
03/20/24 06:40 Nose MRSA Screen - Final
No Methicillin Resistant Staphylococcus aureus isolated.
[2024-03-24] MEDS: FIRVANQ 125 MG PO ×2 (11:56→19:59)
--- NOTE | 2024-03-24 15:11 | PTCARENOTE ---
pt's BP improved. Pt refused to work with PT, refused to get OOB and pushing against staff. No change in overall assessment
--- NOTE | 2024-03-24 19:31 | PTCARENOTE ---
received pt to 3W at 1730, in custody of [facility] guards, VSS taken, pt sleeping, bed in lowest position, call diaz within reach. Rectal trumpet draining light brown liquid stool, malodorous.
[2024-03-24] MEDS: LOVENOX SC (19:59)
[2024-03-25] MEDS: CATAPRES 0.2 MG PO ×4 (00:11→16:59)
[2024-03-25] MEDS: D5/0.45%NSS with KCL 20 MEQ 1000 IV (00:11)
[2024-03-25] MEDS: FIRVANQ 125 MG PO ×4 (00:12→17:00)
[2024-03-25 03:00] VITALS: BP 151/88
[2024-03-25 06:00] VITALS: BMI 18.6
[2024-03-25 07:10] VITALS: BP 197/122
[2024-03-25] MEDS: APRESOLINE 10 MG IV (08:17)
[2024-03-25] MEDS: KCL ELIXIR 40 MEQ PO (08:17)
[2024-03-25] MEDS: PROCARDIA XL (EXTENDED RELEASE) 30 MG PO (08:17)
[2024-03-25] MEDS: SUBUTEX 16 MG SL (08:18)
[2024-03-25] MEDS: ZOFRAN 4 MG IV (08:18)
--- NOTE | 2024-03-25 10:51 | W.PN.HOSP.TC ---
Today's Communication/Plan
-
Advance diet as tolerated
Assessment / Plan
Assessment / Plan
Gen-more awake today, NAD
HEENT-NC, AT, anicteric, clear oral mm
Neck-supple
CV-reg, no M, +S1/S2
Lungs-clear B/L
Abd-soft, NT, ND
Ext-no edema
Musculoskeletal-no cyanosis, clubbing
Skin-warm and dry
C. difficile colitis -continue oral vancomycin. Fecal management system removed. No diarrhea so far today as per nursing. Suspect leukocytosis and low-grade fever due to C. difficile infection.
Acute TME -due to opioid withdrawal syndrome. No evidence of seizures on EEG. Appreciate neurology input. CT head without contrast negative. Mental status improving.
Opioid-induced ileus -ileus resolved. Tolerating clears, advance diet as tolerated. Discussed with nursing.
Opioid withdrawal syndrome -continue protocol.
Hypertensive emergency -blood pressure remains labile and elevated at times. Continue Procardia XL, clonidine.
Hypokalemia - resolved.
Hypomagnesemia -resolved.
Substance abuse -consult psychiatry once stable.
Full code - assumed.
PT/OT
Dispo -back to [facility] when medically stable, hopefully in the next 24 hours.
Anticipated Discharge: Within 24 hours
Subjective/Interval History
-
Date of Service: March 25, 2024
Patient seen and examined. Complaining of hunger.
Objective Data
-
Labs:
Laboratory Results
03/25/24
10:32
WBC Pending
Hgb Pending
Hct Pending
Plt Count Pending
Sodium Pending
Potassium Pending
Chloride Pending
Carbon Dioxide Pending
BUN Pending
Creatinine Pending
Glucose Pending
Calcium Pending
Vital Signs:
Vital Signs
Temp Pulse Resp BP Pulse Ox
99.0 F 87 19 197/122 98
03/25/24 07:10 03/25/24 07:10 03/25/24 07:10 03/25/24 07:10 03/25/24 07:10
I&O
03/24/24 03/25/24 03/26/24
06:59 06:59 06:59
Intake Total 1969 / 2039 940 / 940
Output Total 425 / 525 100 / 100
Balance 1545 / 1515 840 / 840
Review of Systems
-
History Source: Patient
All other systems: Reviewed and negative
[2024-03-25 11:11] LABS: % Basophils 0.3 % (0-2); % Eosinophils 0.2 % (0-6); % Immature Granulocytes 0.7 % (0-0.5); % Lymphocytes 14.6 % (20.5-51.1); % Monocytes 6.2 % (1.7-9.3); Absolute Immature Granulocytes 0.1 10^3/uL (0-0.05); Absolute Lymphocytes 1.8 10^3/uL (1.2-3.4); Absolute Monocytes 0.8 10^3/uL (0.1-0.6); Absolute Neutrophils 9.7 10^3/uL (1.4-6.5); Hematocrit 36.2 % (37.0-47.0); Hemoglobin 11.9 g/dL (12.0-16.0); Mean Corp Hgb Conc. 32.9 g/dL (33.0-37.0); Mean Corpuscular Volume 82.1 fL (81.0-99.0); Mean Platelet Volume 8.9 fL (7.4-10.4); Nucleated Red Blood Cells % 0 %; Platelet Count 272 10^3/uL (130-400); Red Blood Cell Count 4.41 10^6/uL (4.20-5.40); Red Cell Dist. Width 14.6 % (11.5-14.5); White Blood Cell Count 12.5 10^3/uL (4.8-10.8)
[2024-03-25 11:15] VITALS: BP 123/61
[2024-03-25 11:16] LABS: Blood Urea Nitrogen 10 mg/dl (7-17); Calcium 8.7 mg/dl (8.4-10.2); Carbon Dioxide 23 mmol/L (22-30); Chloride 100 mmol/L (98-107); Estimated Creatinine Clearance 102 ml/min; Glucose 126 mg/dl (70-99); Potassium 4.4 mmol/L (3.5-5.1); Sodium 133 mmol/L (135-145); eGFR > 60.00
--- NOTE | 2024-03-25 12:15 | PTCARENOTE ---
PT stated she uses a bundle fo fentyal every day for there years and felt like she was in withdrawl. pt sweaty with hallucinations. Her HR 110-118. I asked if we can put pt on COWs to monitor withdrawl. did not feel it iwas necessary as she is
onon subutex and clonidinne
--- NOTE | 2024-03-25 12:20 | PTCARENOTE ---
IVF . awared .No new orders. IVF to as ordered
[2024-03-25 15:10] VITALS: BP 112/71
[2024-03-25] MEDS: LOVENOX SC ×3 (16:59→19:44)
[2024-03-25 19:00] VITALS: BP 118/69
--- NOTE | 2024-03-25 19:21 | PTCARENOTE ---
At 610 tele rang 10 beats VT. I immediately went into room. PT lying on side and stated she had fluttering in her chest and complained of palpitations, midsternal 10/10 burning pain, pain in arms and low back, no nausea. BP 110/59 100% room air H
102-109. a EKG obtained immediately showing < 1 mm rise on baseline on lead II, III but V1 and V2 had a T wave inversion. made aware. Labs ordered and toradol ordered and given. because of history of IVDA and track noble we have not been
successful iw obtaining any labs. pt has had more than 6 six with two different people. Md notified. left for day. and attempt to notify production graphic designer STEAMFITTER APPRENTICE
[2024-03-25 21:38] LABS: Blood Urea Nitrogen 15 mg/dl (7-17); Calcium 8.8 mg/dl (8.4-10.2); Carbon Dioxide 23 mmol/L (22-30); Chloride 99 mmol/L (98-107); Estimated Creatinine Clearance 102 ml/min; Glucose 101 mg/dl (70-99); Magnesium 1.8 mg/dl (1.6-2.3); Phosphorus 3.2 mg/dl (2.5-4.5); Sodium 131 mmol/L (135-145); eGFR > 60.00
[2024-03-25 21:49] LABS: Troponin I 0.018 ng/ml
[2024-03-25] MEDS: TORADOL 15 MG IV (22:55)
[2024-03-25 23:00] VITALS: BP 131/77
[2024-03-26] VITALS (9 sets, daily range): BP systolic 133–155; BP diastolic 74–107; PULSE 90; O2SAT 99
[2024-03-26] MEDS: FIRVANQ 125 MG PO ×5 (00:04→23:11)
[2024-03-26] MEDS: CATAPRES 0.2 MG PO ×5 (00:04→23:17)
[2024-03-26 07:07] LABS: Troponin I 0.022 ng/ml
[2024-03-26 07:09] LABS: % Basophils 0.2 % (0-2); % Eosinophils 0.7 % (0-6); % Immature Granulocytes 0.9 % (0-0.5); % Lymphocytes 27.5 % (20.5-51.1); % Monocytes 7.8 % (1.7-9.3); % Neutrophils 62.9 % (42.2-75.2); Absolute Eosinophils 0.1 10^3/uL (0-0.7); Absolute Immature Granulocytes 0.1 10^3/uL (0-0.05); Absolute Lymphocytes 2.4 10^3/uL (1.2-3.4); Absolute Monocytes 0.7 10^3/uL (0.1-0.6); Absolute Neutrophils 5.4 10^3/uL (1.4-6.5); Hemoglobin 10.3 g/dL (12.0-16.0); Mean Corp Hgb Conc. 33.2 g/dL (33.0-37.0); Mean Corpuscular Hgb 27.1 pg (27.0-31.0); Mean Corpuscular Volume 81.6 fL (81.0-99.0); Mean Platelet Volume 9.2 fL (7.4-10.4); Nucleated Red Blood Cells % 0 %; Platelet Count 215 10^3/uL (130-400); Red Cell Dist. Width 14.3 % (11.5-14.5); White Blood Cell Count 8.6 10^3/uL (4.8-10.8)
[2024-03-26 07:52] LABS: Blood Urea Nitrogen 15 mg/dl (7-17); Calcium 8.4 mg/dl (8.4-10.2); Carbon Dioxide 25 mmol/L (22-30); Chloride 99 mmol/L (98-107); Estimated Creatinine Clearance 102 ml/min; Glucose 98 mg/dl (70-99); Potassium 3.8 mmol/L (3.5-5.1); Sodium 133 mmol/L (135-145); eGFR > 60.00
[2024-03-26] MEDS: PROCARDIA XL (EXTENDED RELEASE) 30 MG PO (09:46)
[2024-03-26] MEDS: KCL ELIXIR 40 MEQ PO (09:46)
[2024-03-26] MEDS: SUBUTEX 16 MG SL (09:46)
[2024-03-26] MEDS: TORADOL 15 MG IV ×2 (09:49→18:40)
[2024-03-26] MEDS: ZOFRAN 4 MG IV (09:50)
--- NOTE | 2024-03-26 10:49 | PTCARENOTE ---
update late note documentation from 03/25 at 1920. I passed the IV lab issue on to next nurse for report. I did notify orthopedically impaired teacher BARKEEP and she was addressing the lab not being drawn. Next Rn aware of the issue.
--- NOTE | 2024-03-26 12:37 | PTCARENOTE ---
She complained of dizziness while in bathroom with guards. her HR 118. I did a set of orthos. Lying Hr 98 138/81 Sitting HR 115 137/9` (complained of dizziness) Stanidn HR 129 Bp 149/101 with dizziness and weakness. When i got her back to
bed lying her HR quickly went back to 98. She was scheduled for clonidine and i gave it do her. her dizziness went away. was made aware and will await a response
--- NOTE | 2024-03-26 13:52 | W.PN.HOSP.TC ---
Today's Communication/Plan
-
Discharge
Assessment / Plan
Assessment / Plan
Gen-more awake today, NAD
HEENT-NC, AT, anicteric, clear oral mm
Neck-supple
CV-reg, no M, +S1/S2
Lungs-clear B/L
Abd-soft, NT, ND
Ext-no edema
Musculoskeletal-no cyanosis, clubbing
Skin-warm and dry
C. difficile colitis -continue oral vancomycin. Fecal management system removed. No diarrhea so far today as per nursing. Suspect leukocytosis and low-grade fever due to C. difficile infection. Leukocytosis resolved. Continue vancomycin for
total 14 days.
Acute TME -due to opioid withdrawal syndrome. No evidence of seizures on EEG. Appreciate neurology input. CT head without contrast negative. Acute TME resolved.
Opioid-induced ileus -ileus resolved. Tolerating solid food.
Opioid withdrawal syndrome -continue protocol.
Hypertensive emergency -blood pressure remains labile and elevated at times. Continue Procardia XL, clonidine.
Hypokalemia - resolved.
Hypomagnesemia -resolved.
Substance abuse
Full code - assumed.
PT/OT
Dispo -medically stable for discharge back to longterm today.
32 minutes spent in discharge process.
Anticipated Discharge: Today
Subjective/Interval History
-
Date of Service: March 26, 2024
Patient seen and examined. No complaints.
Objective Data
-
Labs:
Laboratory Results
03/26/24
06:38
WBC 8.6
Hgb 10.3 L
Hct 31.0 L
Plt Count 215 D
Sodium 133 L
Potassium 3.8
Chloride 99
Carbon Dioxide 25
BUN 15
Creatinine 0.5 L
Glucose 98
Calcium 8.4
Vital Signs:
Vital Signs
Temp Pulse Resp BP Pulse Ox
98.2 F 120 18 149/101 97
03/26/24 11:00 03/26/24 12:32 03/26/24 11:00 03/26/24 12:32 03/26/24 11:00
I&O
03/25/24 03/26/24 03/27/24
06:59 06:59 06:59
Intake Total 940 / 940 960 / 960 1919
Output Total 100 / 100
Balance 840 / 840 960 / 960 1919
Review of Systems
-
History Source: Patient
All other systems: Reviewed and negative
--- NOTE | 2024-03-26 13:57 | W.DS.TRANS ---
DC Summary - Medical Policy Specialist
-
Discharge Instructions:
Discharge Diagnosis/Procedures C. difficile colitis, opioid withdrawal syndrome
, hypertensive emergency, polysubstance abuse
Diet Low Residue
Activity As tolerated
Driving Restrictions No driving
Bathing Restrictions None
Instructions:
Stand-Alone Forms:
Changes to Home Medications: No
Discharge Medications:
DC Medications w/original date entered in [employer]
buprenorphine HCl 8 mg sublingual tablet 16 mg (2 x 8 mg) sublingual DAILY #0 tabs 03/26/24
clonidine HCl 0.2 mg tablet 0.2 mg PO Q6 #0 tabs 03/26/24
nifedipine 30 mg tablet,extended release 30 mg PO DAILY #0 tabs 03/26/24
ondansetron 4 mg disintegrating tablet 4 mg PO Q6H PRN nausea and vomiting #20 tabs 03/26/24
potassium chloride 20 mEq/15 mL oral liquid 40 meq (30 mL) PO DAILY #0 mL 03/26/24
vancomycin 50 mg/mL oral solution 125 mg (2.5 mL) PO Q6 #0 mL 03/26/24
Home Medication Changes
Pending Results: No
--- NOTE | 2024-03-26 14:50 | CM ---
entered order for discharge.
Spoke with Shawn at [facility] he forwarded message to female side.
Called [phone] no ANSWER [facility] CALLED TO RECEIVE REPORT from floor RN.
To return via van with guards
PLAN Return to [facility]
[2024-03-26] MEDS: LOVENOX SC (17:30)
--- NOTE | 2024-03-26 18:30 | PTCARENOTE ---
Guards came out to room and stated that the patient is very dizzy with ambulating to the bathroom and needs a very heavy assistance. I reassess the patient. She again complained of the chest pain that was the same as it had been all day. I attempted
to stand her and she was too weak. She appears very lethargic, sluggish upon standing and she leans into the right and feels like she is dizzy and going to fall. She requires a moderate to heavy assist to bathroom. When she gets back to bed all the
symptoms resolve. The guards told me that she will need to be able to ambulate her self into the bathroom once she gets backto the [facility]. I did inform the MD and he stated if the patient wants to stay she can stay. I asked the patient if she felt
like she needed one more day and she said yes absolutely. Order placed and DC was canceled
[2024-03-26] MEDS: TYLENOL 650 MG PO (23:11)
[2024-03-27 03:45] VITALS: BP 173/103
[2024-03-27] MEDS: TORADOL 15 MG IV ×2 (04:16→12:21)
[2024-03-27] MEDS: APRESOLINE 10 MG IV (04:17)
[2024-03-27] MEDS: CATAPRES 0.2 MG PO ×2 (05:58→12:05)
[2024-03-27] MEDS: FIRVANQ 125 MG PO ×2 (05:59→12:18)
[2024-03-27 07:10] VITALS: BP 163/91
[2024-03-27] MEDS: PROCARDIA XL (EXTENDED RELEASE) 30 MG PO (08:01)
[2024-03-27] MEDS: SUBUTEX 16 MG SL (08:02)
[2024-03-27] MEDS: KCL ELIXIR PO (08:12)
--- NOTE | 2024-03-27 09:17 | CM ---
Spoke with Rowena at [facility]
will accept patient back
PLAN: Discharge [facility]
Report #: [phone]
fax #: [phone]
[2024-03-27 11:10] VITALS: BP 159/95
--- NOTE | 2024-03-27 12:46 | W.PN.HOSP.TC ---
Today's Communication/Plan
-
dc
Assessment / Plan
Assessment / Plan
C. difficile colitis -continue oral vancomycin for total 14-day.
-No further diarrheal movements
Acute TME -due to opioid withdrawal syndrome. No evidence of seizures on EEG. Appreciate neurology input. CT head without contrast negative. Acute TME resolved.
Opioid-induced ileus -ileus resolved. Tolerating solid food.
Opioid withdrawal syndrome -continue protocol.
Hypertensive emergency -blood pressure remains labile and elevated at times. Continue Procardia XL, clonidine.
Hypokalemia - resolved.
Hypomagnesemia -resolved.
Substance abuse
Full code - assumed.
PT/OT SNF vs institutional facility.
-Per case management can return to institutional facility as they can provide her with assistance
Discharge today
More than 30 minutes spent in discharge including
Final examination of the patient
Summarizing hospital stay
Instructions for continuing care to all relevant caregivers
Preparation of discharge records, prescriptions, and referral forms
Total time spent (in minutes): 33min
Anticipated Discharge: Today
Subjective/Interval History
-
Date of Service: March 27, 2024
Seen and examined. No new complaints. No acute overnight events per
Per nursing staff and nursing aides has been able to ambulate to the bathroom/brush her teeth with some assistance with a correctional captain
Objective Data
-
Vital Signs:
Vital Signs
Temp Pulse Resp BP Pulse Ox
97.4 F 91 18 159/95 98
03/27/24 11:10 03/27/24 12:05 03/27/24 11:10 03/27/24 12:05 03/27/24 11:10
I&O
03/26/24 03/27/24 03/28/24
06:59 06:59 06:59
Intake Total 960 / 960 4260 / 4260
Balance 960 / 960 4260 / 4260
Physical Exam
-
General: Well Developed and Well Nourished
HEENT: Normocephalic, Atraumatic and Moist Mucous Membranes
Respiratory: Clear to Auscultation
Cardiac: Regular Rhythm and S1/S2
GI: Soft, Nontender, Nondistended and Normal Bowel Sounds
Musculoskeletal: No Clubbing, No Cyanosis and No Edema
Neuro: Awake, Alert, Oriented and AO x 3
Psych: Calm
--- NOTE | 2024-03-27 12:49 | W.DCSUMMARY ---
Discharge Summary
Discharge Data
Date of Admission: 03/20/24
Date of Discharge: 03/27/24
-
Pending Results: No
Hospital Course
39 female with a history of hypertension and IV opioid/methamphetamine abuse presented with change in mental status believed to be related to opioid withdrawal. However there was concern for somaticize disorder/seizures due to cocaine
exposure. Neurology was consulted 1 hour EEG obtained. EEG: normal EEG does not rule out diagnosis of epilepsy. As this was a normal EEG neurology did not initiate any AEDs at this time. CT head without contrast was negative. Was admitted to
ICU for airway monitoring and was noted to have hypertensive emergency. Was started on a Cardene drip and eventually titrated off. Mental status did not improve.
Hospital course was complicated by vomiting. Abdominal exam was benign however abdominal x-ray was obtained that was negative for obstruction. NG tube was placed for concern of opioid induced ileus. This was eventually removed and was able to
tolerate a diet.
Additionally, noted to have large amounts of diarrhea therefore C. difficile was checked that was positive. Started on oral vancomycin and required fecal management system which was eventually removed. Oral vancomycin was recommended for total 14
days.
Due to vomiting and diarrhea this led to electrolyte abnormalities required supplementation.
Discharge Plan
-
Patient Disposition: Shelter
Discharge Diagnosis/Procedures: C. difficile colitis, opioid withdrawal syndrome, hypertensive emergency, polysubstance abuse
Condition: Good
Diet: Low Residue
Activity: As tolerated
Driving Restrictions: No driving
Bathing Restrictions: None
Referrals:
[facility] [Family Provider] -
Prescriptions:
New
clonidine HCl 0.2 mg Tablet
0.2 mg PO Q6 Qty: 0 0RF
vancomycin 50 mg/mL Recon Soln
125 mg PO Q6 Qty: 0 0RF
Rx Instructions:
Last day April 08, 2024
nifedipine 30 mg Tablet Extended Release
30 mg PO DAILY Qty: 0 0RF
potassium chloride 20 mEq/15 mL Liquid
40 meq PO DAILY Qty: 0 0RF
buprenorphine HCl 8 mg Tablet, Sublingual
16 mg sublingual DAILY Qty: 0 0RF
ondansetron 4 mg tablet,disintegrating
4 mg PO Q6H PRN (Reason: nausea and vomiting) Qty: 20 0RF
Discharge Orders:
Discharge Patient (As Directed); Ordered 03/26/24
Ordered By: Dk De La Cruz
Discharge Date and Time
Print Language: OMANI
[2024-03-27 15:10] VITALS: BP 123/70
[2024-03-27] MEDS: TYLENOL 650 MG PO (16:53)
== END 2024-03-27 17:23 | DRG 896 ==
LOC: 3 WEST ACU 08:40
PROVIDERS: Hospitalist; ADMITTING PHYSICIAN Internal Medicine; ATTENDING PHYSICIAN Hospitalist; CONSULT PHYSICIAN Internal Medicine Critical Care Medicine; CONSULT PHYSICIAN Psychiatry & Neurology Neurology; EMERGENCY PHYSICIAN Emergency Medicine
DX: F11.23 Opioid dependence with withdrawal (principal); G92.8 Other toxic encephalopathy; I16.1 Hypertensive emergency; A04.72 Enterocolitis due to Clostridium difficile, not specified as recurrent; K56.7 Ileus, unspecified; F14.23 Cocaine dependence with withdrawal; E87.6 Hypokalemia; E83.42 Hypomagnesemia; R56.9 Unspecified convulsions; T40.2X5A Adverse effect of other opioids, initial encounter; F15.10 Other stimulant abuse, uncomplicated
CPT/HCPCS: 51701; 70450; 71045; 74022; 80048; 80053; 80306; 80307; 81003; 81015; 83735; 84100; 84132; 84484; 84703; 85025; 85610; 85730; 87070; 87086; 87324; 87449; 87798; 93005; 95813; 96361; 96374; 96375; 97163; 97165; 99285